=== PATIENT | male | born 1955 | race African-American/Black ===

== ENCOUNTER 2017-02-10 19:35 | Inpatient (IN) | payer MEDICAID ==
[~2017-02-10] VITALS: Ht 177.8 cm; Wt 75.1 kg
[~2017-02-10 19:35] MED LIST: AMLO5TAB2 PO; ASPI-110 PO; GABA800T PO; LANTUS2P SQ; LOSA25TA PO; LOVA40TA PO; OMEP20CA2; ONETKIT; ONETTES4; ROBA500T PO; TAMS5CAP PO; voltaren gel TOP
[2017-02-10 19:37] VITALS: BP 139/86; PULSE 117; RESP 20; TEMP 98.6; O2SAT 96
--- NOTE | 2017-02-10 19:55 | PD ---
Physical Exam Date Seen by Provider: Feb 10, 2017 Time Seen by Provider: 19:53 Narrative 61 yo male here for evaluation of elevated BS. Has had this for a few days. Cannot keep BS down with his meds. Has also multiple other complains including dysuria, feet pain from neuropathy and chest pain. Per patient he feels "bad". Nothing seems to make it better. Has numbness on neck. Chest pain with SOB. pain is 8/10 especially in the feet. His BS has been in the 300s and came down from there to 200s. Vital signs stable in triage. Waiting bed placement. Data Data Last Documented VS Vital Signs Date Time Temp Pulse Resp B/P Pulse Ox O2 Delivery O2 Flow Rate FiO2 02/10/17 19:37 98.6 117 20 139/86 96 Room Air [facility] Medical Record Reviewed: Yes Supervised Visit with TATIANA: Mateo Bueno Feb 10, 2017 19:55
[2017-02-10] MEDS ORDERED: SODIUM CHLOR 0.9% 1000 ML INJ 1,000 ML IV SCH (21:40)
[2017-02-10] MEDS ORDERED: HYDROmorphone HCL PF 2 MG/ML VIAL IVS ONE (21:45)
[2017-02-10] MEDS ORDERED: ONDANSETRON HCL 4 MG/2 ML VIAL IVP ONE (21:45)
--- NOTE | 2017-02-10 21:47 | PD ---
HPI Chief Complaint: Diabetic Time Seen by Provider: 21:39 Travel History International Travel<30 days: No Contact w/Intl Traveler<30days: No Traveled to known affect area: No History of Present Illness HPI HERE C/O ELEV BLOOD SUGAR, ALONG WITH BODY ACHES, N/V/D/ ONGOING FOR SEVERAL DAYS, BODY ACHES ARE SHARP/ACHY MUSCLE ACHES......CURRENTLY DENIES RUNNY NOSE/ COUGH/FEVER...PT DENIES ANY ALLEVIATING OR AGGRAVATING FACTORS PFSH Past Medical History Arthritis: Yes Blood Disorders: No Heart Rhythm Problems: No Cancer: No Cardiovascular Problems: No High Cholesterol: Yes Chest Pain: No Congestive Heart Failure: No Diabetes: Yes Diminished Hearing: No Endocrine: Yes Gastrointestinal Disorders: Yes (HIATAL HERNIA, GERD) GERD: Yes Genitourinary: No Hepatitis: Yes (HEP C) Hiatal Hernia: Yes Hypertension: Yes Immune Disorder: No Musculoskeletal: Yes (ARTHRITIS IN NECK) Neurologic: Yes (NEUROPATHY) Psychiatric: No Reproductive: No Respiratory: Yes (SMOKES 1/2 PPD CIGARETTES) Myocardial Infarction: No Thyroid Disease: No Ulcer: No Past Surgical History Abdominal Surgery: No AICD: No Appendectomy: No Arteriovenous Shunt: No Cardiac Surgery: No Cholecystectomy: No Ear Surgery: No Endocrine Surgery: No Eye Surgery: No Genitourinary Surgery: Yes Gynecologic Surgery: No Insulin Pump: No Joint Replacement: No Oral Surgery: No Pacemaker: No Thoracic Surgery: Yes (BIOPSY OF CHEST MASS 2013, mass removed from chest) Other Surgery: Yes Social History Alcohol Use: Yes (BEER DAILY) Tobacco Use: Yes (CIGARS ONLY) Substance Use: Yes (HX ON METHADONE AND COCAINE OCCASIONALLY) Allergies-Medications (Allergen,Severity, Reaction): Coded Allergies: No Known Allergies (Verified , 01/26/17) Reported Meds & Prescriptions Reported Meds & Active Scripts Active Robaxin (Methocarbamol) 500 Mg Tab 500 Mg PO TID Lantus Inj (Insulin Glargine) 1,000 Unit/10 Ml Vial 60 Units SQ BID 30 Days Lovastatin 40 Mg Tab 80 Mg PO DAILY Gabapentin 800 Mg Tab 800 Mg PO QID Losartan (Losartan Potassium) 25 Mg Tab 25 Mg PO DAILY Amlodipine (Amlodipine Besylate) 5 Mg Tab 5 Mg PO DAILY Flomax (Tamsulosin HCl) 0.4 Mg Cap 0.4 Mg PO HS Onetouch Ultra Test Strips (Blood Glucose Test Strips) 1 Maricruz Maricruz 1 Strip .ROUTE TID Onetouch Ultra Mini W/Device (Device) 1 Kit Kit 1 Kit .ROUTE DIRECTED [voltaren gel] 1 Applic TOP TID PRN Reported Omeprazole 20 Mg Cap Aspirin 81 (Aspirin) 81 Mg Tabdr 81 Mg PO DAILY Review of Systems Except as stated in HPI: all other systems reviewed are Neg Gastrointestinal: Positive: Nausea, Vomiting, Diarrhea, Abdominal Pain Musculoskeletal: Positive: Myalgias Physical Exam Narrative GENERAL: SKIN: Warm and dry. HEAD: Atraumatic. Normocephalic. EYES: Pupils equal and round. No scleral icterus. No injection or drainage. ENT: No nasal bleeding or discharge. Mucous membranes pink and moist. NECK: Trachea midline. No JVD. CARDIOVASCULAR: Regular rate and rhythm. RESPIRATORY: No accessory muscle use. Clear to auscultation. Breath sounds equal bilaterally. GASTROINTESTINAL: Abdomen soft, non-tender, nondistended. Hepatic and splenic margins not palpable. MUSCULOSKELETAL: Extremities without clubbing, cyanosis, or edema. No obvious deformities. NEUROLOGICAL: Awake and alert. No obvious cranial nerve deficits. Motor grossly within normal limits. Five out of 5 muscle strength in the arms and legs. Normal speech. PSYCHIATRIC: Appropriate mood and affect; insight and judgment normal. Data Data Last Documented VS Vital Signs Date Time Temp Pulse Resp B/P Pulse Ox O2 Delivery O2 Flow Rate FiO2 02/10/17 19:37 98.6 117 20 139/86 96 Room Air Orders Electrocardiogram (02/10/17 ) Complete Blood Count With Diff (02/10/17 21:40) Comprehensive Metabolic Panel (02/10/17 21:40) Lipase (02/10/17 21:40) Urinalysis - C+S If Indicated (02/10/17 21:40) Ct Abd/Pel W/O Iv Contrast (02/10/17 21:40) Iv Access Insert/Monitor (02/10/17 21:40) Ecg Monitoring (02/10/17 21:40) Oximetry (02/10/17 21:40) NPO (02/10/17 21:40) Hydromorphone Pf Inj (Dilaudid Pf Inj) (02/10/17 21:45) Ondansetron Inj (Zofran Inj) (02/10/17 21:45) Sodium Chlor 0.9% 1000 Ml Inj (Ns 1000 M (02/10/17 21:40) Influenzae A/B Antigen (02/10/17 21:40) Electrocardiogram (02/10/17 21:41) Ckmb (Isoenzyme) Profile (02/10/17 21:41) Troponin I (02/10/17 21:41) Insulin Human Regular Inj (Novolin R Inj (02/11/17 00:15) Insulin Human Regular Inj (Novolin R Inj (02/11/17 00:15) Admit To Inpatient (02/11/17 ) Vital Signs (Adult) Q4H (02/11/17 00:24) Activity Oob With Assistance (02/11/17 00:24) Housekeeper Caregiver / Telemetry .CONTINUOUS (02/11/17 00:24) Diet Npo (02/11/17 Breakfast) Sodium Chloride 0.9% Flush (Ns Flush) (02/11/17 00:30) Sodium Chloride 0.9% Flush (Ns Flush) (02/11/17 09:00) Basic Metabolic Panel (Bmp) (02/12/17 06:00) Complete Blood Count With Diff (02/12/17 06:00) Case Management Consult (02/11/17 00:24) Naloxone Inj (Narcan Inj) (02/11/17 00:30) Inpatient Certification (02/11/17 ) Dext 5%-Nacl 0.9% 1000 Ml Inj (D5w-Ns 10 (02/11/17 00:30) Bedside Glucose JOSIAS.AC&HS (02/11/17 00:24) Blood Glucose Goal (Criteria) (02/11/17 00:24) Hypoglycemia 70 Mg/Dl Or < (02/11/17 00:24) Notify Dr: Other (02/11/17 00:24) Dextrose 50% In [place] (Vial) Inj (D50w (Vi (02/11/17 00:30) Glucagon Inj (Glucagon Inj) (02/11/17 00:30) Consult Gastroenterology (02/11/17 ) Hydromorphone Pf Inj (Dilaudid Pf Inj) (02/11/17 00:30) Admit Order (Ed Use Only) (02/11/17 00:24) Labs Laboratory Tests Test 02/10/17 21:50 White Blood Count 6.2 TH/MM3 Red Blood Count 4.92 MIL/MM3 Hemoglobin 13.4 GM/DL Hematocrit 40.4 % Mean Corpuscular Volume 82.0 FL Mean Corpuscular Hemoglobin 27.2 PG Mean Corpuscular Hemoglobin 33.2 % Concent Red Cell Distribution Width 13.6 % Platelet Count 301 TH/MM3 Mean Platelet Volume 7.9 FL Neutrophils (%) (Auto) 60.4 % Lymphocytes (%) (Auto) 27.1 % Monocytes (%) (Auto) 9.6 % Eosinophils (%) (Auto) 1.9 % Basophils (%) (Auto) 1.0 % Neutrophils # (Auto) 3.7 TH/MM3 Lymphocytes # (Auto) 1.7 TH/MM3 Monocytes # (Auto) 0.6 TH/MM3 Eosinophils # (Auto) 0.1 TH/MM3 Basophils # (Auto) 0.1 TH/MM3 CBC Comment DIFF FINAL Differential Comment Urine Color LIGHT-YELLOW Urine Turbidity CLEAR Urine pH 5.5 Urine Specific [place] 1.023 Urine Protein NEG mg/dL Urine Glucose (UA) 1000 mg/dL Urine Ketones NEG mg/dL Urine Occult Blood NEG Urine Nitrite NEG Urine Bilirubin NEG Urine Urobilinogen LESS THAN 2.0 MG/DL Urine Leukocyte Esterase NEG Urine WBC LESS THAN 1 /hpf Microscopic Urinalysis Comment CULT NOT INDICATED Sodium Level 128 MEQ/L Potassium Level 4.8 MEQ/L Chloride Level 94 MEQ/L Carbon Dioxide Level 24.8 MEQ/L Anion Gap 9 MEQ/L Blood Urea Nitrogen 9 MG/DL Creatinine 1.31 MG/DL Estimat Glomerular Filtration 68 ML/MIN Rate Random Glucose 451 MG/DL Calcium Level 9.0 MG/DL Total Bilirubin 0.4 MG/DL Aspartate Amino Transf 51 U/L (AST/SGOT) Alanine Aminotransferase 39 U/L (ALT/SGPT) Alkaline Phosphatase 217 U/L Total Protein 7.9 GM/DL Albumin 3.2 GM/DL Lipase 85 U/L [facility] Medical Decision Making Medical Screen Exam Complete: Yes Emergency Medical Condition: Yes Medical Record Reviewed: Yes Differential Diagnosis VIRAL V BACTERIAL ENTERITIS V COLITIS V PANCREATITIS VS VIRAL SYNDROME V ATYPICAL MO Narrative Course PATIENT'S PAIN IS CONTROLLED AND NOT VOMITING ANYMORE, WILL ADMIT TO [facility] FOR CHOLEDOCHOLITHIASIS WHICH WAS EXPLAINED TO PATIENT Physician Communication Physician Communication D/W DR BRASWELL HOSPITALIST AND WITH GI DR SANABRIA Diagnosis Primary Impression: CHOLEDOCHOLITHIASIS Additional Impression: HYPERGLYCEMIA Admitting Information Admitting Physician Requests: Admit Condition: Stable Trent Ambrocio MD Feb 10, 2017 21:47
[2017-02-10 22:13] LABS: AUTOMATED NEUTROPHIL # 3.7 TH/MM3 (1.8-7.7); BASOPHIL # 0.1 TH/MM3 (0-0.2); EOSINOPHIL # 0.1 TH/MM3 (0-0.4); EOSINOPHIL % 1.9 % (0.0-4.0); HEMATOCRIT 40.4 % (39.0-51.0); HEMO FLAGS DIFF FINAL; LYMPH % 27.1 % (9.0-44.0); LYMPHOCYTE # 1.7 TH/MM3 (1.0-4.8); MEAN CORPUSCULAR HEMOGLOBIN 27.2 PG (27.0-34.0); MEAN CORPUSCULAR HGB CONC 33.2 % (32.0-36.0); MONO % 9.6 % (0.0-8.0); NEUT % 60.4 % (16.0-70.0); PLATELET COUNT 301 TH/MM3 (150-450); RED BLOOD COUNT 4.92 MIL/MM3 (4.50-5.90); RED CELL DISTRIBUTION WIDTH 13.6 % (11.6-17.2); WHITE BLOOD COUNT 6.2 TH/MM3 (4.0-11.0)
[2017-02-10 22:24] LABS: BLOOD, URINE NEG (NEG); GLUCOSE,URINE 1000 mg/dL (NEG); KETONE, URINE NEG (NEG); NITRITE,URINE NEG (NEG); PH, URINE 5.5 (5.0-8.5); URINE COLOR LIGHT-YELLOW (YELLW/STRAW)
[2017-02-10 22:25] LABS: COMMENT (UR) CULT NOT INDICATED; CULTURE IF INDICATED CULT NOT INDICATED
[2017-02-10 22:29] LABS: ANION GAP 9 MEQ/L (5-15)
--- NOTE | 2017-02-10 22:29 | RADRPT ---
EXAM DATE/TIME: 02/10/2017 22:07 [place] COMPARISON: No previous studies available for comparison. INDICATIONS : Abdominal pain, nausea and vomiting. ORAL CONTRAST: No oral contrast ingested. RADIATION DOSE: 5.92 CTDIvol (mGy) MEDICAL HISTORY : Hypertension. Gastroesophageal reflux disease. Diabetes. SURGICAL HISTORY : None. ENCOUNTER: Initial ACUITY: 1 day PAIN SCALE: 4/10 LOCATION: All quadrants. TECHNIQUE: Volumetric scanning of the abdomen and pelvis was performed. Using automated exposure control and ad justment of the mA and/or kV according to patient size, radiation dose was kept as low as reasonably achievable to obtain optimal diagnostic quality images. DICOM format image data is available electro nically for review and comparison. FINDINGS: LOWER LUNGS: The visualized lower lungs are clear. LIVER: Homogeneous density without lesion. There is no dilation of the biliary tree. There are calcified ga llstones. The gallbladder is mildly distended. There is a 7 mm calcification seen in the distal commo n bile duct. The common bile duct is dilated measuring up to 1.3 cm. SPLEEN: Normal size without lesion. PANCREAS: Within normal limits. KIDNEYS: Normal in size and shape. There is no mass, stone, or hydronephrosis. ADRENAL GLANDS: Within normal limits. VASCULAR: There is no aortic aneurysm. BOWEL/MESENTERY: The stomach, small bowel, and colon demonstrate no acute abnormality. There is no free intraperitone al air or fluid. ABDOMINAL WALL: Within normal limits. RETROPERITONEUM: There is no lymphadenopathy. BLADDER: No wall thickening or mass. REPRODUCTIVE: Within normal limits. INGUINAL: There is no lymphadenopathy or hernia. MUSCULOSKELETAL: Within normal limits for patient age. CONCLUSION: 7 mm stone at the distal common bile duct. There is dilatation of the common bile duct. Calcified gal lstones are seen. Danny Roman MD on February 10, 2017 at 22:24 Board Certified Radiologist. This report was verified electronically.
[2017-02-10 22:31] LABS: ALKALINE PHOSPHATASE 217 U/L (45-117); ALT (GPT) 39 U/L (12-78); AST (GOT) 51 U/L (15-37); BICARBONATE 24.8 MEQ/L (21.0-32.0); BLOOD UREA NITROGEN 9 MG/DL (7-18); CHLORIDE 94 MEQ/L (98-107); GLOMERULAR FILTRATION RATE 68 ML/MIN (>89); POTASSIUM 4.8 MEQ/L (3.5-5.1); SODIUM (NA) 128 MEQ/L (136-145); TOTAL BILIRUBIN ADULT 0.4 MG/DL (0.2-1.0)
[2017-02-11] VITALS (8 sets, daily range): BP systolic 116–154; BP diastolic 58–85; PULSE 63–86; RESP 16–18; TEMP 96.3–97.6; O2SAT 95–99
[2017-02-11] MEDS ORDERED: INSULIN HUMAN REGULAR 1,000 UNITS/10 ML VIAL IV PUSH ONE (00:15)
[2017-02-11] MEDS ORDERED: INSULIN HUMAN REGULAR 1,000 UNITS/10 ML VIAL SQ ONE (00:15)
[2017-02-11] MEDS ORDERED: NALOXONE HCL 0.4 MG/ML AMP IV PRN (00:30)
[2017-02-11] MEDS ORDERED: SODIUM CHLORIDE 0.9% FLUSH 10 ML FLUSH IV FLUSH PRN (00:30)
[2017-02-11] MEDS ORDERED: DEXTROSE 50% IN WATER 50 ML VIAL(D50) IV PRN (00:30)
[2017-02-11] MEDS ORDERED: GLUCAGON 1 MG/ML VIAL OTHER PRN (00:30)
[2017-02-11] MEDS: DEXT 5%-NACL 0.9% 1000 ML INJ 1,000 ML IV SCH ×2 (00:48→01:55)
[2017-02-11 01:10] LABS: CREATINE KINASE 158 U/L (39-308)
--- NOTE | 2017-02-11 01:59 | HHI.HP ---
[facility] Service [facility] Primary Care Physician Daniela Hilton MD Admission Diagnosis CHOLEDOCHOLITHIASIS, HYPERGLYCEMIA Diagnoses: Travel History International Travel<30 Days: No Contact w/Intl Traveler <30 Da: No Traveled to Known Affected Are: No History of Present Illness i dont feel well has abdominal pain for past 2 months points to epigastric area report of pain in feet rigth ear and neck and numbness and pain nauseous all the time no vomtiing diarrhea once a day or so, reports of cramping, had hard stool that turns to diarrhea no fever no syncope no falls but was dizzy all the time had burning and pain on urination Review of Systems Except as stated in HPI: all other systems reviewed are Neg Past Family Social History Past Medical History htn dm hepatitis C - was not treated Past Surgical History 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 in 01/2014 surgery on right wrist surgery on left foot as a child Allergies: Coded Allergies: No Known Allergies (Verified , 01/26/17) Family History father had dm brother, sister- dm Social History smokes cigars drink a few beers 4 a day used to use cocaine and heroine- have not used heroin for years, cocaine episodic use till now Physical Exam Vital Signs Vital Signs Date Time Temp Pulse Resp B/P Pulse Ox O2 Delivery O2 Flow Rate FiO2 02/11/17 01:40 96.9 84 18 154/85 96 02/11/17 00:55 86 16 116/58 97 02/10/17 19:37 98.6 117 20 139/86 96 Room Air Physical Exam GENERAL: This is a well-nourished, well-developed patient, in no apparent distress. SKIN: No rashes, ecchymoses or lesions. Cool and dry. HEAD: Atraumatic. Normocephalic. No temporal or scalp tenderness. EYES: No scleral icterus. No injection or drainage. ENT: Nose without bleeding, purulent drainage or septal hematoma. Airway patent. NECK: Trachea midline. No JVD CARDIOVASCULAR: Regular rate and rhythm without murmurs, gallops, or rubs. RESPIRATORY: Clear to auscultation. Breath sounds equal bilaterally. No wheezes , rales, or rhonchi. GASTROINTESTINAL: Abdomen soft, non-tender, nondistended. No guarding. MUSCULOSKELETAL: Extremities without clubbing, cyanosis, or edema. No calf tenderness. NEUROLOGICAL: Awake and alert. Normal speech.Pupils equal round and reactive. Extraocular motions intact. Laboratory Laboratory Tests Test 02/10/17 21:50 White Blood Count 6.2 Red Blood Count 4.92 Hemoglobin 13.4 Hematocrit 40.4 Mean Corpuscular Volume 82.0 Mean Corpuscular Hemoglobin 27.2 Mean Corpuscular Hemoglobin 33.2 Concent Red Cell Distribution Width 13.6 Platelet Count 301 Mean Platelet Volume 7.9 Neutrophils (%) (Auto) 60.4 Lymphocytes (%) (Auto) 27.1 Monocytes (%) (Auto) 9.6 Eosinophils (%) (Auto) 1.9 Basophils (%) (Auto) 1.0 Neutrophils # (Auto) 3.7 Lymphocytes # (Auto) 1.7 Monocytes # (Auto) 0.6 Eosinophils # (Auto) 0.1 Basophils # (Auto) 0.1 CBC Comment DIFF FINAL Differential Comment Urine Color LIGHT-YELLOW Urine Turbidity CLEAR Urine pH 5.5 Urine Specific [place] 1.023 Urine Protein NEG Urine Glucose (UA) 1000 Urine Ketones NEG Urine Occult Blood NEG Urine Nitrite NEG Urine Bilirubin NEG Urine Urobilinogen LESS THAN 2.0 Urine Leukocyte Esterase NEG Urine WBC LESS THAN 1 Microscopic Urinalysis Comment CULT NOT INDICATED Sodium Level 128 Potassium Level 4.8 Chloride Level 94 Carbon Dioxide Level 24.8 Anion Gap 9 Blood Urea Nitrogen 9 Creatinine 1.31 Estimat Glomerular Filtration 68 Rate Random Glucose 451 Calcium Level 9.0 Total Bilirubin 0.4 Aspartate Amino Transf 51 (AST/SGOT) Alanine Aminotransferase 39 (ALT/SGPT) Alkaline Phosphatase 217 Total Protein 7.9 Albumin 3.2 Lipase 85 Total Creatine Kinase 158 Creatine Kinase MB 1.0 Troponin I LESS THAN 0.02 Date/Time Procedure Status Source Growth 02/10/17 21:50 Influenza Types A,B Antigen (ELAN) - Final Complete Nasal Washing NEGATIVE FOR FLU A AND B ANTIGEN.... Result Diagram: 02/10/17214902/10/172149 Imaging Last 48 hours Impressions Abdomen/Pelvis CT 02/10/172139 Signed Impressions: Service Date/Time: Friday, February 10, 2017 22:07 - CONCLUSION: 7 mm stone at the distal common bile duct. There is dilatation of the common bile duct. Calcified gallstones are seen. Danny Roman MD Assessment and Plan Assessment and Plan Impression: choledocholelithiasis abdominal pain due to above Plan: npo iv fluids with d5 montior fingersticks gi consult for ercp resume home meds dvt prophylaxis with scd gi prophylaxis with pantoprazole Discussed Condition With patient, ER provider, nursing staff Physician Certification 2 Midnight Certification Type: Admission for Inpatient Services Order for Inpatient Services The services are ordered in accordance with Medicare regulations or non- Medicare payer requirements, as applicable. In the case of services not specified as inpatient-only, they are appropriately provided as inpatient services in accordance with the 2-midnight benchmark. Estimated LOS (days): 2 days is the estimated time the patient will need to remain in the hospital, assuming treatment plan goals are met and no additional complications. Post-Hospital Plan: Home Girish Eaton MD Feb 11, 2017 01:59
[2017-02-11] MEDS: HYDROmorphone HCL PF 1 MG/ML VIAL IV PUSH PRN ×5 (02:55→22:12)
[2017-02-11] MEDS: SODIUM CHLORIDE 0.9% FLUSH 10 ML FLUSH IV FLUSH SCH ×2 (09:00→21:00)
[2017-02-11] MEDS: amLODIPine BESYLATE 5 MG TAB PO SCH (09:08)
[2017-02-11] MEDS: GABAPENTIN 400 MG CAP PO SCH ×4 (09:08→21:04)
[2017-02-11] MEDS: PRAVASTATIN SOD 40 MG TAB PO SCH (09:08)
[2017-02-11] MEDS: PANTOPRAZOLE SOD 40 MG DELAYED RELEASE TAB PO SCH (09:08)
--- NOTE | 2017-02-11 09:37 | PD.CONS ---
HPI History of Present Illness This is a 61 year old male who presented to the emergency room for evaluation of abdominal pain with associated nausea. He reports that he's been having symptoms intermittently for the past 6 months. He describes this pain as an intermittent cramping pain in his epigastric area that radiates to his back and lower abdomen. He does have associated nausea although he denies any vomiting. He has had decreased appetite and has lost about 20 pounds over the past 6 months. He occasionally has heartburn, but denies having this on a regular basis. He does not feel that his abdominal pain is related to food intake. He states that sometimes he will not move that his bowels for 2 days and this seems to set off his abdominal pain. When this happens he will usually have a formed bowel movement and then have several loose stools afterwards. He denies any melena or hematochezia. He denies any fevers, chills, or jaundice. He occasionally will take milk of magnesia for his symptoms, although he states this does not really help with his symptoms. He denies any history of known gallbladder issues. He was diagnosed with hepatitis C about 10 years ago and is treatment [place]. He currently drinks 4 beers per day and states that he has past history of heroin and cocaine use, currently on methadone. PFSH Past Medical History Hypertension Diabetes Hepatitis C, Treatment naive Hx chest wall infection, osteomyelitis, s/p I&D Past Surgical History Chest wall infection with osteomyelitis- s/p surgery Right wrist surgery Left foot surgery Coded Allergies: No Known Allergies (Verified , 01/26/17) Medications Allergies Coded Allergies Type Severity Reaction Last Updated Verified No Known Allergies 01/26/17 Yes Active Scripts Medications Dose Route/Sig Days Date Category Robaxin (Methocarbamol) 500 Mg Tab 500 Mg PO TID 02/10/17 Rx Lantus Inj (Insulin Glargine) 1,000 Unit/10 Ml Vial 60 Units SQ BID 30 01/26/17 Rx Omeprazole 20 Mg Cap 01/26/17 Reported Lovastatin 40 Mg Tab 80 Mg PO DAILY 12/23/16 Rx Gabapentin 800 Mg Tab 800 Mg PO QID 12/23/16 Rx Losartan (Losartan Potassium) 25 Mg Tab 25 Mg PO DAILY 12/23/16 Rx Amlodipine (Amlodipine Besylate) 5 Mg Tab 5 Mg PO DAILY 12/23/16 Rx Flomax (Tamsulosin HCl) 0.4 Mg Cap 0.4 Mg PO HS 12/23/16 Rx Onetouch Ultra Test Strips (Blood Glucose Test Strips) 1 Maricruz Maricruz 1 Strip .ROUTE TID 11/18/16 Rx Onetouch Ultra Mini W/Device (Device) 1 Kit Kit 1 Kit .ROUTE DIRECTED 11/18/16 Rx Aspirin 81 (Aspirin) 81 Mg Tabdr 81 Mg PO DAILY 09/17/16 Reported [voltaren gel] 1 Applic TOP TID PRN 05/15/16 Rx Family History Father, brother, and sister all with diabetes Social History Smokes 5 miniature cigars per day Drinks 4 beers per day History of cocaine and heroin use, currently on methadone treatment Review of Systems Constitutional: COMPLAINS OF: Fatigue, Weight loss, Change in appetite, DENIES : Fever, Chills Respiratory: DENIES: Cough Cardiovascular: DENIES: Chest pain Gastrointestinal: COMPLAINS OF: Abdominal pain, Constipation, Diarrhea, Nausea , Anorexia, DENIES: Black stools, Bloody stools, Vomiting, Heartburn, Hematemesis Musculoskeletal: COMPLAINS OF: Back pain Integumentary: COMPLAINS OF: Abnormal pigmentation (to upper chest and neck), DENIES: Jaundice Neurologic: DENIES: Headache Psychiatric: DENIES: Confusion GI Exam Vitals I&O Vital Signs Date Time Temp Pulse Resp B/P Pulse Ox O2 Delivery O2 Flow Rate FiO2 02/11/17 08:51 97.0 63 16 128/73 99 02/11/17 05:00 96.5 70 16 127/72 97 02/11/17 03:25 18 02/11/17 01:40 96.9 84 18 154/85 96 02/11/17 00:55 86 16 116/58 97 02/10/17 19:37 98.6 117 20 139/86 96 Room Air Imaging Last Impressions Abdomen/Pelvis CT 02/10/17 2140 Signed Impressions: Service Date/Time: Friday, February 10, 2017 22:07 - CONCLUSION: 7 mm stone at the distal common bile duct. There is dilatation of the common bile duct. Calcified gallstones are seen. Danny Roman MD Laboratory Test 02/10/17 21:50 White Blood Count 6.2 TH/MM3 Red Blood Count 4.92 MIL/MM3 Hemoglobin 13.4 GM/DL Hematocrit 40.4 % Mean Corpuscular Volume 82.0 FL Mean Corpuscular Hemoglobin 27.2 PG Mean Corpuscular Hemoglobin 33.2 % Concent Red Cell Distribution Width 13.6 % Platelet Count 301 TH/MM3 Mean Platelet Volume 7.9 FL Neutrophils (%) (Auto) 60.4 % Lymphocytes (%) (Auto) 27.1 % Monocytes (%) (Auto) 9.6 % Eosinophils (%) (Auto) 1.9 % Basophils (%) (Auto) 1.0 % Neutrophils # (Auto) 3.7 TH/MM3 Lymphocytes # (Auto) 1.7 TH/MM3 Monocytes # (Auto) 0.6 TH/MM3 Eosinophils # (Auto) 0.1 TH/MM3 Basophils # (Auto) 0.1 TH/MM3 CBC Comment DIFF FINAL Differential Comment Urine Color LIGHT-YELLOW Urine Turbidity CLEAR Urine pH 5.5 Urine Specific [place] 1.023 Urine Protein NEG mg/dL Urine Glucose (UA) 1000 mg/dL Urine Ketones NEG mg/dL Urine Occult Blood NEG Urine Nitrite NEG Urine Bilirubin NEG Urine Urobilinogen LESS THAN 2.0 MG/DL Urine Leukocyte Esterase NEG Urine WBC LESS THAN 1 /hpf Microscopic Urinalysis Comment CULT NOT INDICATED Sodium Level 128 MEQ/L Potassium Level 4.8 MEQ/L Chloride Level 94 MEQ/L Carbon Dioxide Level 24.8 MEQ/L Anion Gap 9 MEQ/L Blood Urea Nitrogen 9 MG/DL Creatinine 1.31 MG/DL Estimat Glomerular Filtration 68 ML/MIN Rate Random Glucose 451 MG/DL Calcium Level 9.0 MG/DL Total Bilirubin 0.4 MG/DL Aspartate Amino Transf 51 U/L (AST/SGOT) Alanine Aminotransferase 39 U/L (ALT/SGPT) Alkaline Phosphatase 217 U/L Total Protein 7.9 GM/DL Albumin 3.2 GM/DL Lipase 85 U/L Total Creatine Kinase 158 U/L Creatine Kinase MB 1.0 NG/ML Troponin I LESS THAN 0.02 NG/ML Date/Time Procedure Status Source Growth 02/10/17 21:50 Influenza Types A,B Antigen (ELAN) - Final Complete Nasal Washing NEGATIVE FOR FLU A AND B ANTIGEN.... Physical Examination HEENT: Normocephalic; atraumatic; no jaundice. CHEST: CTA CARDIAC: RRR ABDOMEN: Soft, nondistended, mild epigastric tenderness; no hepatosplenomegaly ; bowel sounds are present in all four quadrants. EXTREMITIES: No clubbing, cyanosis, or edema. SKIN: Normal; no rash; no jaundice. DUAL RATE DEALER: No focal deficits; alert and oriented times three. Assessment and Plan Plan ASSESSMENT: - Choledocholithiasis. Abdomen/Pelvis CT (02/10/17)----> 7 mm stone at the distal common bile duct. There is dilatation of the common bile duct. Calcified gallstones are seen. He has been having intermittent nausea, abdominal pain, anorexia, weight loss x 6 months. He is in no distress and is afebrile. Yesterday's LFTs with T. Bilirubin total bilirubin 0.4, AST 51 , ALT 39, alkaline phosphatase 217. We will repeat LFTs today. WBC 6.2. Will plan for ERCP with possible sphincterotomy, possible stent placement tomorrow. - Abdominal pain, nausea secondary to above. PPI. Rpt. LFT. ERCP tomorrow - Anorexia, Wt. Loss 30 lbs in [address] as above. - Cholelithiasis. Will consult for evaluation for possible cholecystectomy after ERCP - CLEMENTE, Creat 1.31. - Hyponatremia, diabetes with elevated glucose per primary PLAN: - Plan for ERCP with possible sphincterotomy, possible stent placement tomorrow - Obtain consents - JUDY - NPO after MN - PPI - IVF - CMP today - CBC, CMP and a.m. - Supportive care - Further recommendations to follow based on results of above - Patient seen and examined by Dr. Bray and myself and this note is written on his behalf Delia Couch Feb 11, 2017 09:36
--- NOTE | 2017-02-11 09:54 | HHI.PR ---
Subjective Remarks Follow up abdominal pain. The patient states that his abdominal pain is somewhat better. He reports left-sided chest pain, which has been intermittent for the last year. Occurs at rest. No chest pain today. He has nausea, but no vomiting. Objective Vitals Vital Signs Date Time Temp Pulse Resp B/P Pulse Ox O2 Delivery O2 Flow Rate FiO2 02/11/17 08:51 97.0 63 16 128/73 99 02/11/17 05:00 96.5 70 16 127/72 97 02/11/17 03:25 18 02/11/17 01:40 96.9 84 18 154/85 96 02/11/17 00:55 86 16 116/58 97 02/10/17 19:37 98.6 117 20 139/86 96 Room Air Result Diagram: 02/10/17214902/10/172149 Imaging Last Impressions Abdomen/Pelvis CT 02/10/172139 Signed Impressions: Service Date/Time: Friday, February 10, 2017 22:07 - CONCLUSION: 7 mm stone at the distal common bile duct. There is dilatation of the common bile duct. Calcified gallstones are seen. Danny Roman MD Objective Remarks General: No acute distress. Sitting up in a chair. Heart: Regular rate and rhythm. No murmur. Lungs: Clear to auscultation bilaterally. No wheezes, rales, or rhonchi. Breathing is nonlabored. Abdomen: Soft, nontender, nondistended. Extremities: No lower extremity edema. Psych: Alert and oriented. Procedures None Urinary Catheter: No Vascular Central Line Catheter: No A/P Problem List: (1) Choledocholithiasis ICD Code: K80.50 Status: Acute (2) Abdominal pain ICD Code: R10.9 Status: Acute (3) Diabetes mellitus with neuropathy ICD Code: E11.40 Status: Chronic (4) Methadone dependence ICD Code: F11.20 Status: Chronic (5) Chest pain ICD Code: R07.9 Status: Chronic Assessment and Plan 1. Choledocholithiasis: Appreciate GI recommendations. Planning for ERCP tomorrow. Abdominal pain is improving. 2. Diabetes mellitus with neuropathy: Monitor Accu-Cheks and cover with sliding scale insulin. Will remove D5 from IV fluids when patient is tolerating food by mouth. 3. Chest pain: This is chronic, intermittent. Unlikely to be cardiac. Cardiac enzymes are negative. 4. Chronic methadone dependence: Nursing to verify dose with methadone clinic. 5. GI prophylaxis: PPI. 6. DVT prophylaxis: SCDs. Problem Qualifiers (1) Diabetes mellitus with neuropathy: Michael Willoughby MD Feb 11, 2017 09:54
[2017-02-11] MEDS ORDERED: METH40TA PO (11:34)
[2017-02-11] MEDS: METHADONE HCL 10 MG TAB PO SCH (12:50)
[2017-02-11] MEDS: LOSARTAN 25 MG TAB PO SCH (12:51)
[2017-02-11] MEDS: INSULIN ASPART SUPPLEMENTAL SCALE SQ SCH ×3 (13:29→21:08)
[2017-02-11 13:48] LABS: ALKALINE PHOSPHATASE 185 U/L (45-117); ALT (GPT) 31 U/L (12-78); ANION GAP 6 MEQ/L (5-15); AST (GOT) 23 U/L (15-37); BLOOD UREA NITROGEN 7 MG/DL (7-18); CHLORIDE 102 MEQ/L (98-107); GLOMERULAR FILTRATION RATE 87 ML/MIN (>89); POTASSIUM 3.9 MEQ/L (3.5-5.1); SODIUM (NA) 137 MEQ/L (136-145); TOTAL BILIRUBIN ADULT 0.3 MG/DL (0.2-1.0)
[2017-02-11] MEDS: SODIUM CHLOR 0.9% 1000 ML INJ 1,000 ML IV SCH (14:42)
[2017-02-11] MEDS: TAMSULOSIN HCL 0.4 MG CAP PO SCH (21:04)
--- NOTE | 2017-02-11 23:22 | EKG ---
Date Performed: 02/10/2017 Time Performed: 20:04:05 PTAGE: 61 years EKG: SINUS TACHYCARDIA POSSIBLE LEFT ATRIAL ENLARGEMENT POSSIBLE INFERIOR MYOCARDIAL INFARCTION ABNORMAL ECG PREVIOUS TRACING : 06/14/2016 15.36 Compared to the previous tracing RATE FASTER DOCTOR: Ida Spencer Interpretating Date/Time 02/11/2017 23:21:13
[2017-02-12] VITALS (9 sets, daily range): BP systolic 140–159; BP diastolic 69–91; PULSE 57–85; RESP 16–18; TEMP 96.6–97.5; O2SAT 97–99
[2017-02-12] MEDS: SODIUM CHLOR 0.9% 1000 ML INJ 1,000 ML IV SCH ×2 (02:34→13:38)
[2017-02-12] MEDS: HYDROmorphone HCL PF 1 MG/ML VIAL IV PUSH PRN ×4 (02:35→20:51)
[2017-02-12] MEDS: INSULIN ASPART SUPPLEMENTAL SCALE SQ SCH ×4 (05:17→20:54)
[2017-02-12 08:11] LABS: AUTOMATED NEUTROPHIL # 2.1 TH/MM3 (1.8-7.7); BASOPHIL % 0.2 % (0.0-2.0); EOSINOPHIL # 0.2 TH/MM3 (0-0.4); EOSINOPHIL % 4.6 % (0.0-4.0); HEMATOCRIT 37.4 % (39.0-51.0); HEMO FLAGS DIFF FINAL; LYMPH % 34.1 % (9.0-44.0); LYMPHOCYTE # 1.4 TH/MM3 (1.0-4.8); MEAN CORPUSCULAR HEMOGLOBIN 27.4 PG (27.0-34.0); MEAN CORPUSCULAR HGB CONC 33.4 % (32.0-36.0); MONO % 10.4 % (0.0-8.0); NEUT % 50.7 % (16.0-70.0); PLATELET COUNT 258 TH/MM3 (150-450); RED BLOOD COUNT 4.56 MIL/MM3 (4.50-5.90); RED CELL DISTRIBUTION WIDTH 13.5 % (11.6-17.2); WHITE BLOOD COUNT 4.2 TH/MM3 (4.0-11.0)
[2017-02-12 08:38] LABS: ALT (GPT) 29 U/L (12-78); ANION GAP 7 MEQ/L (5-15); AST (GOT) 30 U/L (15-37); BICARBONATE 28.2 MEQ/L (21.0-32.0); BLOOD UREA NITROGEN 9 MG/DL (7-18); CHLORIDE 102 MEQ/L (98-107); GLOMERULAR FILTRATION RATE 92 ML/MIN (>89); SODIUM (NA) 137 MEQ/L (136-145)
[2017-02-12 08:41] LABS: ALKALINE PHOSPHATASE 179 U/L (45-117); TOTAL BILIRUBIN ADULT 0.4 MG/DL (0.2-1.0)
[2017-02-12] MEDS: SODIUM CHLORIDE 0.9% FLUSH 10 ML FLUSH IV FLUSH SCH ×2 (09:00→20:47)
[2017-02-12] MEDS: amLODIPine BESYLATE 5 MG TAB PO SCH (09:38)
[2017-02-12] MEDS: LOSARTAN 25 MG TAB PO SCH (09:38)
[2017-02-12] MEDS: PRAVASTATIN SOD 40 MG TAB PO SCH (09:39)
[2017-02-12] MEDS: METHADONE HCL 10 MG TAB PO SCH (09:39)
[2017-02-12] MEDS: PANTOPRAZOLE SOD 40 MG DELAYED RELEASE TAB PO SCH (09:39)
[2017-02-12] MEDS: GABAPENTIN 400 MG CAP PO SCH ×4 (09:39→20:49)
--- NOTE | 2017-02-12 10:47 | HHI.PR ---
Subjective Remarks Follow up abdominal pain. Patient states that he feels much better. Abdominal pain is improved. No nausea/vomiting. Objective Vitals Vital Signs Date Time Temp Pulse Resp B/P Pulse Ox O2 Delivery O2 Flow Rate FiO2 02/12/17 08:32 97.1 57 16 142/69 99 02/12/17 04:00 96.6 68 18 159/80 98 02/12/17 00:00 97.1 66 16 140/79 99 02/11/17 20:08 70 02/11/17 20:00 96.7 64 16 125/70 98 02/11/17 16:00 96.3 65 16 124/71 98 02/11/17 12:00 97.6 67 16 131/72 97 I/O 02/11/17 02/11/17 02/11/17 02/12/17 02/12/17 02/12/17 07:00 15:00 23:00 07:00 15:00 23:00 Intake Total 960 ml 480 ml 2346 ml Output Total 450 ml Balance 960 ml 30 ml 2346 ml Intake Oral 960 ml 480 ml IV Total 2346 ml Output Urine Total 450 ml # Voids 1 1 Result Diagram: 02/12/17 0747 02/12/17 0747 Imaging Last Impressions Abdomen/Pelvis CT 02/10/172139 Signed Impressions: Service Date/Time: Friday, February 10, 2017 22:07 - CONCLUSION: 7 mm stone at the distal common bile duct. There is dilatation of the common bile duct. Calcified gallstones are seen. Danny Roman MD Objective Remarks General: No acute distress. Heart: Regular rate and rhythm. No murmur. Lungs: Clear to auscultation bilaterally. No wheezes, rales, or rhonchi. Breathing is nonlabored. Abdomen: Soft, nontender, nondistended. Extremities: No lower extremity edema. Psych: Alert and oriented. Procedures None Urinary Catheter: No Vascular Central Line Catheter: No A/P Problem List: (1) Choledocholithiasis ICD Code: K80.50 Status: Acute (2) Abdominal pain ICD Code: R10.9 Status: Acute (3) Diabetes mellitus with neuropathy ICD Code: E11.40 Status: Chronic (4) Methadone dependence ICD Code: F11.20 Status: Chronic (5) Chest pain ICD Code: R07.9 Status: Chronic Assessment and Plan 1. Choledocholithiasis: Appreciate GI recommendations. ERCP today. Abdominal pain is improved. 2. Diabetes mellitus with neuropathy: Monitor Accu-Cheks and cover with sliding scale insulin. 3. Chest pain: This is chronic, intermittent. Unlikely to be cardiac. Cardiac enzymes are negative. 4. Chronic methadone dependence: Methadone dose confirmed by nursing with methadone clinic. 5. GI prophylaxis: PPI. 6. DVT prophylaxis: SCDs. Problem Qualifiers (1) Diabetes mellitus with neuropathy: Michael Willoughby MD Feb 12, 2017 10:47
[2017-02-12] MEDS ORDERED: ONDANSETRON HCL 4 MG/2 ML VIAL IV PUSH ONE (12:00)
[2017-02-12] MEDS ORDERED: NEOSTIGMINE 3 MG/3 ML SYR IV ONE (12:00)
[2017-02-12 16:05] LABS: HEMOGLOBIN A1a 1.3 %; HEMOGLOBIN A1b 1.9 %; HEMOGLOBIN Ao 74.6 %; HEMOGLOBIN LA1C 2.8 %; HEMOGLOBIN P3 4.7 %
[2017-02-12] MEDS ORDERED: IOHEXOL 350 MG/ML 50 ML BTL (for RAD DIAG) OTHER ONE (17:49)
[2017-02-12] MEDS ORDERED: PROPOFOL 200 MG/20 ML AMP IV ONE (18:04)
--- NOTE | 2017-02-12 18:22 | PD.PROCEDR ---
GI Procedure REFERRING PHYSICIAN Ryan WHITE PERFORMED ERCP with sphincterotomy and balloon extraction INDICATION FOR PROCEDURE Choledocholithiasis PROCEDURE: The procedure, risks and benefits were discussed with Mr. Longo and informed consent was obtained. Anesthesia sedated him with Diprivan. He was placed in the left lateral decubitus position. ERCP: Patient was placed in a prone position. The Pentax videoscope was introduced through the oropharynx and advanced to the second portion of the duodenum where the ampula was identified. FINDINGS: The ampulla appeared to be unremarkable initial cannulation was that of the pancreatic duct with limited injection then I was able to cannulate the common bile duct appeared to be dilated there was a distal filling defect the intrahepatics were unremarkable a sphincterotomy was performed then using initially the 15 mm balloon then the 12 mm balloon I was able to take out the filling defect a small stone a cholangiogram subsequently was unremarkable the patient tolerated procedure well and there were no immediate complications ESTIMATED BLOOD LOSS: None SPECIMENS REMOVED: None COMPLICATIONS: None IMPRESSION: Choledocholithiasis PLAN: Continue present supportive care Monitor labs Travis Roche MD Feb 12, 2017 18:22
[2017-02-12] MEDS ORDERED: fentaNYL CITRATE 250 MCG/5 ML AMP ONE (18:25)
--- NOTE | 2017-02-12 18:32 | RADRPT ---
EXAM DATE/TIME: 02/12/2017 17:51 [facility] COMPARISON: CT ABDOMEN & PELVIS W/O CONTRAST, February 10, 2017, 22:07. INDICATIONS : Patient with abdominal pain, nausea and vomiting. 7 mm stone noted in the distal common bile duct on CT. Sphincterotomy FLUORO TIME: 4.37 minutes IMAGE COUNT: 2 CONTRAST: Instilled by Ordering Physician MEDICAL HISTORY : Hypertension. Gastroesophageal reflux disease. Diabetes mellitus type II. SURGICAL HISTORY : None. ENCOUNTER: Initial ACUITY: 3 days PAIN SCORE: Non-responsive. LOCATION: Abdomen FINDINGS: An ERCP was performed by the ordering physician. 2 anterior coned-down images of the right upper quadrant were obtained using a matrix camera. This de monstrates an endoscope in place with cannulization of the common bile duct. The common bile duct is dilated and measures up to approximately 1 cm. There is no contrast in the distal duct with apparent filling defect. There is contrast noted in the pancreatic duct. CONCLUSION: ERCP as above. Vaibhav Shine MD on February 12, 2017 at 18:27 Board Certified Radiologist. This report was verified electronically.
[2017-02-12] MEDS ORDERED: *LABETALOL HCL 100 MG/20 ML VIAL PERIprocedural Use ONLY ONE (18:36)
[2017-02-12] MEDS ORDERED: DO NOT ADM ANY ANTICOAGULANT DRUGS PRN (19:15)
[2017-02-12] MEDS: TAMSULOSIN HCL 0.4 MG CAP PO SCH (20:49)
[2017-02-13] VITALS (8 sets, daily range): BP systolic 140–173; BP diastolic 65–84; PULSE 56–80; RESP 14–20; TEMP 96.6–98.2; O2SAT 95–100
[2017-02-13] MEDS: SODIUM CHLOR 0.9% 1000 ML INJ 1,000 ML IV SCH ×2 (01:09→13:40)
[2017-02-13] MEDS: HYDROmorphone HCL PF 1 MG/ML VIAL IV PUSH PRN ×4 (01:10→21:40)
[2017-02-13] MEDS: INSULIN ASPART SUPPLEMENTAL SCALE SQ SCH ×4 (05:36→20:19)
[2017-02-13] MEDS ORDERED: HYDROmorphone HCL PF 1 MG/ML VIAL IV PUSH ONE (08:00)
[2017-02-13] MEDS: METHADONE HCL 10 MG TAB PO SCH (08:27)
[2017-02-13] MEDS: PRAVASTATIN SOD 40 MG TAB PO SCH (08:27)
[2017-02-13] MEDS: LOSARTAN 25 MG TAB PO SCH (08:27)
[2017-02-13] MEDS: GABAPENTIN 400 MG CAP PO SCH ×4 (08:27→20:12)
[2017-02-13] MEDS: PANTOPRAZOLE SOD 40 MG DELAYED RELEASE TAB PO SCH (08:27)
[2017-02-13] MEDS: amLODIPine BESYLATE 5 MG TAB PO SCH (08:29)
[2017-02-13] MEDS: SODIUM CHLORIDE 0.9% FLUSH 10 ML FLUSH IV FLUSH SCH ×2 (08:29→20:12)
--- NOTE | 2017-02-13 10:07 | HHI.PR ---
Subjective Remarks Follow-up abdominal pain. Patient had worsening abdominal pain this morning, but is now comfortable after receiving Dilaudid. Denies diarrhea or constipation. Denies nausea or vomiting. Objective Vitals Vital Signs Date Time Temp Pulse Resp B/P Pulse Ox O2 Delivery O2 Flow Rate FiO2 02/13/17 09:21 95 21 02/13/17 04:00 97.4 56 14 140/65 99 02/13/17 00:04 97.9 74 18 154/77 99 02/12/17 20:04 97.5 78 17 157/91 97 02/12/17 20:00 72 02/12/17 19:39 58 02/12/17 18:45 97.8 60 12 162/79 99 Room Air 02/12/17 18:30 65 13 189/86 99 Room Air 02/12/17 18:19 97.7 83 15 164/90 100 Simple Mask 6 02/12/17 16:00 97.5 70 16 140/72 99 02/12/17 12:46 96.9 64 16 147/74 99 I/O 02/12/17 02/12/17 02/12/17 02/13/17 02/13/17 02/13/17 07:00 15:00 23:00 07:00 15:00 23:00 Intake Total 2346 ml 712 ml 800 ml Output Total 0 ml Balance 2346 ml 712 ml 800 ml IV Total 2346 ml 712 ml Other 800 ml Estimated Blood Loss 0 ml # Voids 1 3 Result Diagram: 02/12/17 0747 02/12/17 0747 Imaging Last Impressions GI Procedure 02/12/17 0000 Signed Impressions: Service Date/Time: January 17:51 - CONCLUSION: ERCP as above. Vaibhav Shine MD Abdomen/Pelvis CT 02/10/17 2140 Signed Impressions: Service Date/Time: Friday, February 10, 2017 22:07 - CONCLUSION: 7 mm stone at the distal common bile duct. There is dilatation of the common bile duct. Calcified gallstones are seen. Danny Roman MD Objective Remarks General: No acute distress. Heart: Regular rate and rhythm. No murmur. Lungs: Clear to auscultation bilaterally. No wheezes, rales, or rhonchi. Breathing is nonlabored. Abdomen: Soft, nontender, nondistended. Extremities: No lower extremity edema. Psych: Alert and oriented. Procedures 02/12/17 ERCP Urinary Catheter: No Vascular Central Line Catheter: No A/P Problem List: (1) Choledocholithiasis ICD Code: K80.50 Status: Acute (2) Abdominal pain ICD Code: R10.9 Status: Acute (3) Diabetes mellitus with neuropathy ICD Code: E11.40 Status: Chronic (4) Methadone dependence ICD Code: F11.20 Status: Chronic (5) Chest pain ICD Code: R07.9 Status: Chronic Assessment and Plan 1. Choledocholithiasis: Appreciate GI recommendations. Status post ERCP. Abdominal pain is improved. 2. Diabetes mellitus with neuropathy: Monitor Accu-Cheks and cover with sliding scale insulin. 3. Chest pain: This is chronic, intermittent. Unlikely to be cardiac. Cardiac enzymes are negative. 4. Chronic methadone dependence: Methadone dose confirmed by nursing with methadone clinic. 5. GI prophylaxis: PPI. 6. DVT prophylaxis: SCDs. Discharge Planning Possible discharge home tomorrow if cleared by GI and symptoms are improved. Problem Qualifiers (1) Diabetes mellitus with neuropathy: Michael Willoughby MD Feb 13, 2017 10:07
[2017-02-13] MEDS ORDERED: BISACODYL 10 MG SUPP RECTAL PRN (10:15)
[2017-02-13] MEDS ORDERED: SENNOSIDES 8.6 MG TAB PO PRN (10:15)
[2017-02-13] MEDS ORDERED: MAGNESIUM HYDROXIDE SUSP 30 ML CUP PO PRN (10:15)
[2017-02-13] MEDS ORDERED: LACTULOSE SYRUP 20 GM/30 ML CUP PO PRN (10:15)
[2017-02-13] MEDS ORDERED: PROPOFOL 200 MG/20 ML AMP IV ONE (12:00)
[2017-02-13] MEDS ORDERED: ONDANSETRON HCL 4 MG/2 ML VIAL IV PUSH ONE (12:00)
[2017-02-13] MEDS ORDERED: NEOSTIGMINE 3 MG/3 ML SYR IV ONE (12:00)
[2017-02-13 12:11] LABS: HEMATOCRIT 37.3 % (39.0-51.0); MEAN CELL VOLUME 82.9 FL (80.0-100.0); MEAN CORPUSCULAR HEMOGLOBIN 26.6 PG (27.0-34.0); MEAN CORPUSCULAR HGB CONC 32.1 % (32.0-36.0); PLATELET COUNT 225 TH/MM3 (150-450); RED CELL DISTRIBUTION WIDTH 13.3 % (11.6-17.2); REVIEW FLAG FINAL
[2017-02-13 12:31] LABS: ALT (GPT) 30 U/L (12-78); AST (GOT) 29 U/L (15-37); BICARBONATE 29.7 MEQ/L (21.0-32.0); BLOOD UREA NITROGEN 5 MG/DL (7-18); CHLORIDE 102 MEQ/L (98-107); GLOMERULAR FILTRATION RATE 97 ML/MIN (>89); POTASSIUM 4.2 MEQ/L (3.5-5.1); SODIUM (NA) 138 MEQ/L (136-145)
[2017-02-13 12:32] LABS: ANION GAP 6 MEQ/L (5-15)
[2017-02-13 12:34] LABS: ALKALINE PHOSPHATASE 164 U/L (45-117); TOTAL BILIRUBIN ADULT 0.5 MG/DL (0.2-1.0)
[2017-02-13] MEDS: DOCUSATE SODIUM 50 MG/SENNA 8.6 MG TAB PO SCH ×2 (12:38→20:10)
--- NOTE | 2017-02-13 14:43 | HHI.GIFU ---
Subjective Remarks Resting in bed. States he had abdominal last night, none now. No n/v. No abdominal pain. Only had clears so far. Would like to eat. Objective Vitals I&O Vital Signs Date Time Temp Pulse Resp B/P Pulse Ox O2 Delivery O2 Flow Rate FiO2 02/13/17 12:00 96.8 69 20 151/75 99 02/13/17 09:21 95 21 02/13/17 08:00 97.8 68 20 158/74 99 02/13/17 04:00 97.4 56 14 140/65 99 02/13/17 00:04 97.9 74 18 154/77 99 02/12/17 20:04 97.5 78 17 157/91 97 02/12/17 20:00 72 02/12/17 19:39 58 02/12/17 18:45 97.8 60 12 162/79 99 Room Air 02/12/17 18:30 65 13 189/86 99 Room Air 02/12/17 18:19 97.7 83 15 164/90 100 Simple Mask 02/12/17 16:00 97.5 70 16 140/72 99 I/O 02/12/17 02/12/17 02/12/17 02/13/17 02/13/17 02/13/17 07:00 15:00 23:00 07:00 15:00 23:00 Intake Total 2346 ml 712 ml 800 ml Output Total 0 ml Balance 2346 ml 712 ml 800 ml IV Total 2346 ml 712 ml Other 800 ml Estimated Blood Loss 0 ml # Voids 1 3 Laboratory Laboratory Tests Test 02/13/17 11:25 White Blood Count 5.0 Red Blood Count 4.50 Hemoglobin 12.0 Hematocrit 37.3 Mean Corpuscular Volume 82.9 Mean Corpuscular Hemoglobin 26.6 Mean Corpuscular Hemoglobin 32.1 Concent Red Cell Distribution Width 13.3 Platelet Count 225 Mean Platelet Volume 7.8 Sodium Level 138 Potassium Level 4.2 Chloride Level 102 Carbon Dioxide Level 29.7 Anion Gap 6 Blood Urea Nitrogen 5 Creatinine 0.96 Estimat Glomerular Filtration 97 Rate Random Glucose 254 Calcium Level 8.5 Total Bilirubin 0.5 Aspartate Amino Transf 29 (AST/SGOT) Alanine Aminotransferase 30 (ALT/SGPT) Alkaline Phosphatase 164 Total Protein 6.7 Albumin 2.7 Lipase 89 Date/Time Procedure Status Source Growth 02/10/17 21:50 Influenza Types A,B Antigen (ELAN) - Final Complete Nasal Washing NEGATIVE FOR FLU A AND B ANTIGEN.... Imaging Last Impressions GI Procedure 02/12/17 0000 Signed Impressions: Service Date/Time: January 17:51 - CONCLUSION: ERCP as above. Vaibhav Shine MD Abdomen/Pelvis CT 02/10/17 2140 Signed Impressions: Service Date/Time: Friday, February 10, 2017 22:07 - CONCLUSION: 7 mm stone at the distal common bile duct. There is dilatation of the common bile duct. Calcified gallstones are seen. Danny Roman MD Physical Exam HEENT: Normocephalic; atraumatic; no jaundice. CHEST: CTA CARDIAC: RRR ABDOMEN: Soft, nondistended, nontender; no hepatosplenomegaly; bowel sounds are present in all four quadrants. EXTREMITIES: No clubbing, cyanosis, or edema. SKIN: Normal; no rash; no jaundice. NUTRITION TEACHER: No focal deficits; alert and oriented times three. Assessment and Plan Plan ASSESSMENT: - Choledocholithiasis. Abdomen/Pelvis CT (02/10/17)----> 7 mm stone at the distal common bile duct. There is dilatation of the common bile duct. Calcified gallstones are seen. S/P ERCP with sphincterotomy and balloon extraction (02/13/17)----> Choledocholithiasis. Had some pain post procedure, but states he is no longer having pain. Tolerating clear liquids. Okay for heart healthy diet. LFTs stable as above. - Abdominal pain, nausea secondary to above. Improved. PPI. Rpt. LFT. - Anorexia, Wt. Loss 30 lbs in [address] as above. - Cholelithiasis. Will consult GS for evaluation for possible cholecystectomy - CLEMENTE, Improved - Hyponatremia, diabetes with elevated glucose per primary PLAN: - Heart healthy diet, diabetic - Consult GS to get established for possible lap. cholecystectomy - PPI - Monitor labs - Supportive care - Further recommendations to follow based on results of above - Patient seen and examined by Dr. Bray and myself and this note is written on his behalf Delia Couch Feb 13, 2017 14:43
--- NOTE | 2017-02-13 16:22 | PD.CONS ---
cc: Evan Martino MD HPI Service General Surgery Consult Requested By Delia HOLDER Reason for Consult Choledocholithiasis; evaluation for laparoscopic cholecystectomy Primary Care Physician Daniela Hilton MD History of Present Illness This is a 61 year old male with a past medical history of diabetes mellitus type 2, Hepatitis C, hypertension, and hiatal hernia. He reports he has had abdominal crampy type pain for 2-3 months. 02/23, currently the pain is 4/10, worse with movement, better with sitting still. He has episodes where he is constipated and episodes where he has diarrhea. He does report nausea. He does not have any vomiting. He came to the emergency room for evaluation of malaise and elevated blood sugars. A CT abdomen and pelvis was obtained which showed a 7 mm stone at the distal common bile duct. An ERCP was completed with extraction of the stone. A General Surgery consultation has been requested for evaluation of laparoscopic cholecystectomy during hospitalization. Review of Systems Constitutional: DENIES: Fatigue, Fever, Chills Endocrine: DENIES: Polydipsia, Polyuria, Polyphagia Eyes: DENIES: Eye inflammation Ears, nose, mouth, throat: DENIES: Hearing loss Respiratory: DENIES: Apneas Cardiovascular: DENIES: Chest pain Gastrointestinal: COMPLAINS OF: Abdominal pain, Constipation, Diarrhea, Nausea , DENIES: Vomiting Genitourinary: DENIES: Urinary frequency Musculoskeletal: DENIES: Joint pain Integumentary: DENIES: Abnormal pigmentation Hematologic/lymphatic: DENIES: Bruising Neurologic: DENIES: Headache, Localized weakness Psychiatric: DENIES: Mood changes, Depression, Hallucinations Past Family Social History Past Medical History Diabetes mellitus type 2 Hepatitis C Hypertension Hiatal hernia Past Surgical History Chest wall infection with osteomyelitis Reported Medications Flomax Losartan Gabapentin Robaxin Amlodipine Lovastatin Lantus Aspirin Methadone Allergies: Coded Allergies: No Known Allergies (Verified , 01/26/17) Active Ordered Medications Current Medications Medications (Trade) Dose Ordered Sig/Sharon Route Start Time Stop Time Status Last Admin (NS Flush) 2 ml UNSCH PRN IV FLUSH 02/11/17 00:30 (NS Flush) 2 ml BID IV FLUSH 02/11/17 09:00 02/13/17 08:29 (Narcan Inj) 0.4 mg UNSCH PRN IV 02/11/17 00:30 (D50w (Vial) Inj) 50 ml UNSCH PRN IV 02/11/17 00:30 (Glucagon Inj) 1 mg UNSCH PRN OTHER 02/11/17 00:30 (Dilaudid Pf Inj) 0.2 mg Q4H PRN IV PUSH 02/11/17 00:30 02/13/17 09:35 (Norvasc) 5 mg DAILY PO 02/11/17 09:00 02/13/17 08:29 (Neurontin) 800 mg QID PO 02/11/17 09:00 02/13/17 12:38 (Cozaar) 25 mg DAILY PO 02/11/17 09:00 02/13/17 08:27 (Pravachol) 80 mg DAILY PO 02/11/17 09:00 02/13/17 08:27 (Flomax) 0.4 mg HS PO 02/11/17 21:00 02/12/17 20:49 (Protonix) 40 mg DAILY PO 02/11/17 09:00 02/13/17 08:27 Methadone HCl 40 mg 40 mg DAILY PO 02/11/17 13:00 02/13/17 08:27 (NS 1000 ml Inj) 1,000 ml @ 84 mls/hr [id number] IV 02/11/17 14:00 02/13/17 01:09 Miscellaneous Information ALL NURSING DEPARTME... UNSCH PRN .XX 02/12/17 19:15 02/13/17 19:14 (Milk Of Magnesia Liq) 30 ml Q12H PRN PO 02/13/17 10:15 (Senokot) 17.2 mg Q12H PRN PO 02/13/17 10:15 (Dulcolax Supp) 10 mg DAILY PRN RECTAL 02/13/17 10:15 (Lactulose Liq) 30 ml DAILY PRN PO 02/13/17 10:15 (Nancy-Colace) 1 tab BID PO 02/13/17 10:15 02/13/17 12:38 Family History Reports mother, father and brother all with diabetes mellitus type 2 Social History Tobacco use positive for cigars daily Positive EtOH approximately 4 beers daily History of cocaine and heroin use Physical Exam Vital Signs Vital Signs Date Time Temp Pulse Resp B/P Pulse Ox O2 Delivery O2 Flow Rate FiO2 02/13/17 12:00 96.8 69 20 151/75 99 02/13/17 09:21 95 21 02/13/17 08:00 97.8 68 20 158/74 99 02/13/17 04:00 97.4 56 14 140/65 99 02/13/17 00:04 97.9 74 18 154/77 99 02/12/17 20:04 97.5 78 17 157/91 97 02/12/17 20:00 72 02/12/17 19:39 58 02/12/17 18:45 97.8 60 12 162/79 99 Room Air 02/12/17 18:30 65 13 189/86 99 Room Air 02/12/17 18:19 97.7 83 15 164/90 100 Simple Mask 6 Physical Exam GENERAL: 61 year old male ambulating in room in no acute distress. SKIN: Warm and dry. HEAD: Atraumatic. Normocephalic. EYES: Pupils equal and round. No scleral icterus. No injection or drainage. ENT: No nasal bleeding or discharge. Mucous membranes pink and moist. NECK: Trachea midline. CARDIOVASCULAR: Regular rate and rhythm. RESPIRATORY: No accessory muscle use. Clear to auscultation. Breath sounds equal bilaterally. GASTROINTESTINAL: Abdomen soft, non-tender, nondistended. Flat abdomen. RIGHT diaphragmatic scar-healed. MUSCULOSKELETAL: Extremities without clubbing, cyanosis, or edema. No obvious deformities. NEUROLOGICAL: Awake and alert. No obvious cranial nerve deficits. Motor grossly within normal limits. Five out of 5 muscle strength in the arms and legs. Normal speech. PSYCHIATRIC: Appropriate mood and affect; insight and judgment normal. Laboratory Laboratory Tests Test 02/13/17 11:25 White Blood Count 5.0 Red Blood Count 4.50 Hemoglobin 12.0 Hematocrit 37.3 Mean Corpuscular Volume 82.9 Mean Corpuscular Hemoglobin 26.6 Mean Corpuscular Hemoglobin 32.1 Concent Red Cell Distribution Width 13.3 Platelet Count 225 Mean Platelet Volume 7.8 Sodium Level 138 Potassium Level 4.2 Chloride Level 102 Carbon Dioxide Level 29.7 Anion Gap 6 Blood Urea Nitrogen 5 Creatinine 0.96 Estimat Glomerular Filtration 97 Rate Random Glucose 254 Calcium Level 8.5 Total Bilirubin 0.5 Aspartate Amino Transf 29 (AST/SGOT) Alanine Aminotransferase 30 (ALT/SGPT) Alkaline Phosphatase 164 Total Protein 6.7 Albumin 2.7 Lipase 89 Date/Time Procedure Status Source Growth 02/10/17 21:50 Influenza Types A,B Antigen (ELAN) - Final Complete Nasal Washing NEGATIVE FOR FLU A AND B ANTIGEN.... Imaging Last 48 hours Impressions GI Procedure 02/12/17 0000 Signed Impressions: Service Date/Time: January 17:51 - CONCLUSION: ERCP as above. Vaibhav Shine MD Assessment and Plan Assessment and Plan 61-year-old male with multiple medical problems; choledocholithiasis -We'll plan for laparoscopic cholecystectomy; possible open procedure; possible intraoperative cholangiogram this evening if OR available -Procedure explained in detail including risks -NPO -Obtain consents -Hold anticoagulation -Thank you for this consult ; we will follow along with this patient Discussed Condition With Dr. Martino MrPablo Noblesd Attending Statement As above pt with cbd stone s/p ercp yesterday Pt is scheduled for lap jose today possible IOC discussed with patient and staff in detail risks benefits alternatives Attestation The exam, history, and the medical decision-making described in the above note were completed with the assistance of the mid-level provider. I reviewed and agree with the findings presented. I attest that I had a [id number] encounter with the patient on the same day, and personally performed and documented my assessment and findings in the medical record. Apurva Owen Feb 13, 2017 16:22 Evan Martino MD Feb 13, 2017 20:53
[2017-02-13] MEDS ORDERED: fentaNYL CITRATE 250 MCG/5 ML AMP ONE (17:08)
[2017-02-13] MEDS ORDERED: KETAMINE HCL 500 MG/5 ML VIAL ONE (17:09)
[2017-02-13] MEDS ORDERED: HYDROmorphone HCL PF 2 MG/ML VIAL ONE (17:23)
--- NOTE | 2017-02-13 17:35 | HHI.PR ---
Immediate Post Op Note Procedure Date: Feb 13, 2017 Pre Op Diagnosis: cholelithiasis with choledocholithiasis Post Op Diagnosis: same Surgeon: Evan Martino MD Separator Operator(s): see or sheet Procedure: lap jose Findings: distended gallbladder with stones Complications: none Specimen(s) removed: gallbladder Estimated blood loss: 5cc Anesthesia: General Drains: None Patient to: PACU Patient Condition: Good Evan Martino MD Feb 13, 2017 17:35
[2017-02-13] MEDS ORDERED: ceFAZolin INJ 1,000 MG VIAL IV ONE (17:45)
[2017-02-13] MEDS ORDERED: BUPIVACAINE/EPINEPHRINE 0.5% PF 30 ML VIAL INFIL ONE (18:04)
[2017-02-13] MEDS ORDERED: oxyCODONE/ACETAMINOPHEN 5 MG/325 MG TAB PO PRN (18:45)
[2017-02-13] MEDS: TAMSULOSIN HCL 0.4 MG CAP PO SCH (20:10)
[2017-02-13] MEDS ORDERED: DO NOT ADM ANY ANTICOAGULANT DRUGS PRN (20:30)
[2017-02-14] VITALS (7 sets, daily range): BP systolic 129–171; BP diastolic 67–81; PULSE 72–120; RESP 18–24; TEMP 98–99.9; O2SAT 97–99
[2017-02-14] MEDS: HYDROmorphone HCL PF 1 MG/ML VIAL IV PUSH PRN ×5 (01:19→21:17)
[2017-02-14] MEDS: INSULIN ASPART SUPPLEMENTAL SCALE SQ SCH ×4 (05:14→21:26)
[2017-02-14] MEDS: PANTOPRAZOLE SOD 40 MG DELAYED RELEASE TAB PO SCH (08:08)
[2017-02-14] MEDS: amLODIPine BESYLATE 5 MG TAB PO SCH (08:08)
[2017-02-14] MEDS: DOCUSATE SODIUM 50 MG/SENNA 8.6 MG TAB PO SCH ×2 (08:09→21:16)
[2017-02-14] MEDS: GABAPENTIN 400 MG CAP PO SCH ×4 (08:09→21:16)
[2017-02-14] MEDS: METHADONE HCL 10 MG TAB PO SCH (08:09)
[2017-02-14] MEDS: LOSARTAN 25 MG TAB PO SCH (08:09)
[2017-02-14] MEDS: PRAVASTATIN SOD 40 MG TAB PO SCH (08:09)
[2017-02-14] MEDS: SODIUM CHLORIDE 0.9% FLUSH 10 ML FLUSH IV FLUSH SCH ×2 (08:12→21:00)
[2017-02-14] MEDS: SODIUM CHLOR 0.9% 1000 ML INJ 1,000 ML IV SCH ×2 (08:12→12:17)
[2017-02-14] MEDS: KETOROLAC TROMETHAMINE 30 MG/ML (IVP) VIAL IV PUSH SCH ×3 (09:23→21:16)
--- NOTE | 2017-02-14 09:24 | HHI.PR ---
Subjective Remarks Follow up abdominal pain. Patient had lap jose yesterday. He reports increased abdominal pain this morning. Denies chest pain, dyspnea. Does have left shoulder pain as well. Objective Vitals Vital Signs Date Time Temp Pulse Resp B/P Pulse Ox O2 Delivery O2 Flow Rate FiO2 02/14/17 04:00 99.9 90 18 139/79 99 02/14/17 00:00 99.9 120 18 135/74 98 02/13/17 20:50 80 02/13/17 20:00 98.2 78 17 173/84 100 02/13/17 19:15 98.6 103 16 174/95 99 Nasal Cannula 2 02/13/17 19:00 88 16 175/84 97 Nasal Cannula 2 02/13/17 18:50 97.6 97 21 188/90 100 Nasal Cannula 2 02/13/17 16:13 96.6 63 20 161/78 96 02/13/17 12:00 96.8 69 20 151/75 99 I/O 02/13/17 02/13/17 02/13/17 02/14/17 02/14/17 02/14/17 07:00 15:00 23:00 07:00 15:00 23:00 Intake Total 720 ml 1380 ml 240 ml Output Total 750 ml Balance 720 ml 630 ml 240 ml Intake Oral 720 ml 480 ml 240 ml Other 900 ml Output Urine Total 750 ml # Voids 5 4 Result Diagram: 02/13/17 1125 02/13/17 1125 Imaging Last Impressions GI Procedure 02/12/17 0000 Signed Impressions: Service Date/Time: January 17:51 - CONCLUSION: ERCP as above. Vaibhav Shine MD Abdomen/Pelvis CT 02/10/17 2140 Signed Impressions: Service Date/Time: Friday, February 10, 2017 22:07 - CONCLUSION: 7 mm stone at the distal common bile duct. There is dilatation of the common bile duct. Calcified gallstones are seen. Danny Roman MD Objective Remarks General: No acute distress. Heart: Regular rate and rhythm. No murmur. Lungs: Clear to auscultation bilaterally. No wheezes, rales, or rhonchi. Breathing is nonlabored. Abdomen: Soft, diffusely tender, moderately distended. Surgical wounds bandaged with Steri strips. Extremities: No lower extremity edema. Psych: Alert and oriented. Procedures 02/12/17 ERCP 02/13/17 laparoscopic cholecystectomy Urinary Catheter: No Vascular Central Line Catheter: No A/P Problem List: (1) Choledocholithiasis ICD Code: K80.50 Status: Acute (2) Abdominal pain ICD Code: R10.9 Status: Acute (3) Diabetes mellitus with neuropathy ICD Code: E11.40 Status: Chronic (4) Methadone dependence ICD Code: F11.20 Status: Chronic (5) Chest pain ICD Code: R07.9 Status: Chronic Assessment and Plan 1. Choledocholithiasis: Appreciate GI recommendations. Status post ERCP. S/P laparoscopic cholecystectomy, POD #1. Appreciate general surgery recommendations. Continue pain medication. 2. Diabetes mellitus with neuropathy: Monitor Accu-Cheks and cover with sliding scale insulin. 3. Chest pain: This is chronic, intermittent. Unlikely to be cardiac. Cardiac enzymes are negative. 4. Chronic methadone dependence: Methadone dose confirmed by nursing with methadone clinic. 5. GI prophylaxis: PPI. 6. DVT prophylaxis: SCDs. Discharge Planning Anticipate discharge home soon, when pain is improved and patient is cleared by general surgery, GI. Problem Qualifiers (1) Diabetes mellitus with neuropathy: Michael Willoughby MD Feb 14, 2017 09:24
[2017-02-14] MEDS ORDERED: ACETAMINOPHEN/HYDROcodone 325 MG/7.5 MG TAB PO PRN (11:15)
--- NOTE | 2017-02-14 11:15 | HHI.PR ---
Subjective Subjective Notes dilaudid has helped with pain. Hungry, wants to eat. hydrocodone has been good for him in the past. Objective Vitals/I&O Vital Signs Date Time Temp Pulse Resp B/P Pulse Ox O2 Delivery O2 Flow Rate FiO2 02/14/17 10:15 97 21 02/14/17 08:00 98.2 104 24 171/81 02/13/17 19:15 Nasal Cannula 2 Labs Laboratory Tests Test 02/13/17 02/13/17 11:25 17:10 White Blood Count 5.0 Red Blood Count 4.50 Hemoglobin 12.0 Hematocrit 37.3 Mean Corpuscular Volume 82.9 Mean Corpuscular Hemoglobin 26.6 Mean Corpuscular Hemoglobin 32.1 Concent Red Cell Distribution Width 13.3 Platelet Count 225 Mean Platelet Volume 7.8 Sodium Level 138 Potassium Level 4.2 Chloride Level 102 Carbon Dioxide Level 29.7 Anion Gap 6 Blood Urea Nitrogen 5 Creatinine 0.96 Estimat Glomerular Filtration 97 Rate Random Glucose 254 Calcium Level 8.5 Total Bilirubin 0.5 Aspartate Amino Transf 29 (AST/SGOT) Alanine Aminotransferase 30 (ALT/SGPT) Alkaline Phosphatase 164 Total Protein 6.7 Albumin 2.7 Lipase 89 Blood Type O POSITIVE Antibody Screen NEGATIVE Date/Time Procedure Status Source Growth 02/10/17 21:50 Influenza Types A,B Antigen (ELAN) - Final Complete Nasal Washing NEGATIVE FOR FLU A AND B ANTIGEN.... Radiology Last 48 hours Impressions GI Procedure 02/12/17 0000 Signed Impressions: Service Date/Time: January 17:51 - CONCLUSION: ERCP as above. Vaibhav Shine MD Abdomen: Non-distended, Other (incision sites all clean and dry, no erythema or drainage.), Post-op tenderness A/P Assessment and Plan POD 1 s/p lap jose. pain improved. Regular diet. lortab. Possible DC tomorrow. Jesus Hill MD Feb 14, 2017 11:15
--- NOTE | 2017-02-14 16:12 | HHI.GIFU ---
Subjective Remarks Pt is complaining of continued abdominal pain He states that he has not had a BM since prior to admission. Pt tolerating his advanced diet this afternoon. (Cierra Wright) Objective Vitals I&O Vital Signs Date Time Temp Pulse Resp B/P Pulse Ox O2 Delivery O2 Flow Rate FiO2 02/14/17 12:00 98.0 76 20 129/71 97 02/14/17 10:15 97 21 02/14/17 08:00 98.2 104 24 171/81 97 02/14/17 08:00 89 02/14/17 04:00 99.9 90 18 139/79 99 02/14/17 00:00 99.9 120 18 135/74 98 02/13/17 20:50 80 02/13/17 20:00 98.2 78 17 173/84 100 02/13/17 19:15 98.6 103 16 174/95 99 Nasal Cannula 2 02/13/17 19:00 88 16 175/84 97 Nasal Cannula 2 02/13/17 18:50 97.6 97 21 188/90 100 Nasal Cannula 2 02/13/17 16:13 96.6 63 20 161/78 96 I/O 02/13/17 02/13/17 02/13/17 02/14/17 02/14/17 02/14/17 07:00 15:00 23:00 07:00 15:00 23:00 Intake Total 720 ml 1380 ml 240 ml Output Total 750 ml Balance 720 ml 630 ml 240 ml Intake Oral 720 ml 480 ml 240 ml Other 900 ml Output Urine Total 750 ml # Voids 5 4 Laboratory Laboratory Tests Test 02/13/17 17:10 Blood Type O POSITIVE Antibody Screen NEGATIVE Date/Time Procedure Status Source Growth 02/10/17 21:50 Influenza Types A,B Antigen (ELAN) - Final Complete Nasal Washing NEGATIVE FOR FLU A AND B ANTIGEN.... Imaging Last Impressions GI Procedure 02/12/17 0000 Signed Impressions: Service Date/Time: January 17:51 - CONCLUSION: ERCP as above. Vaibhav Shine MD Abdomen/Pelvis CT 02/10/17 2140 Signed Impressions: Service Date/Time: Friday, February 10, 2017 22:07 - CONCLUSION: 7 mm stone at the distal common bile duct. There is dilatation of the common bile duct. Calcified gallstones are seen. Danny Roman MD Physical Exam HEENT: Normocephalic; atraumatic; no jaundice. CHEST: CTA CARDIAC: RRR ABDOMEN: +BS, soft, nondistended, mild tenderness around incision site, incision sites are c/d/i EXTREMITIES: No clubbing, cyanosis, or edema. SKIN: Normal; no rash; no jaundice. LIBRARY CLERICAL ASSISTANT: No focal deficits; alert and oriented times three. (Cierra Wright) Assessment and Plan Plan ASSESSMENT: - Choledocholithiasis. Abdomen/Pelvis CT (02/10/17)----> 7 mm stone at the distal common bile duct. There is dilatation of the common bile duct. Calcified gallstones are seen. S/P ERCP with sphincterotomy and balloon extraction (02/13/17)----> Choledocholithiasis. Had some pain post procedure. Pt underwent Lap Lizbet on 02/13/[address] Martino. - Abdominal pain, nausea secondary to above. Improved. PPI. Rpt. LFT. - Anorexia, Wt. Loss 30 lbs in [address] as above. - Cholelithiasis. s/p Lap Lizbet on 02/13. - CLEMENTE, Improved - Hyponatremia, diabetes with elevated glucose per primary PLAN: - Diet as tolerated per GS - Simethicone 125mg Q8H - Check KUB - Cont. Nancy-Colace. - MOM PRN, Lactulose PRN, Dulcolax PRN and Senna PRN already ordered. - PPI - Monitor labs - Supportive care - Pt will need to followup with GI outpt in 2 weeks. - Patient was seen and examined by myself and Dr. Roche, this note was written on his behalf (Cierra Wright) Physician Comments Patient seen and examined Agree with above Continue with current supportive care Monitor labs Follow-up with GI post discharge We will sign off (Travis Roche MD) Cierra Wright Feb 14, 2017 16:12 Travis Roche MD Feb 14, 2017 18:57
--- NOTE | 2017-02-14 18:03 | RADRPT ---
EXAM DATE/TIME: 02/14/2017 17:32 [facility] COMPARISON: No previous studies available for comparison. INDICATIONS : Abdominal pain MEDICAL HISTORY : Hypertension. Gastroesophageal reflux disease. Diabetes mellitus type II. SURGICAL HISTORY : None. ENCOUNTER: Initial ACUITY: 3 days PAIN SCORE: 4/10 LOCATION: Bilateral abdomen FINDINGS: Supine view of the abdomen was performed. The abdominal bowel gas pattern is normal. No abnormal ma sses, calcifications, or organomegaly is seen. The osseous structures are unremarkable. Clips are se en in the right upper quadrant. CONCLUSION: No acute disease. Danny Roman MD on February 14, 2017 at 18:00 Board Certified Radiologist. This report was verified electronically.
[2017-02-14] MEDS: TAMSULOSIN HCL 0.4 MG CAP PO SCH (21:16)
[2017-02-14] MEDS: SIMETHICONE 125 MG CHEWABLE TAB PO SCH (21:16)
--- NOTE | 2017-02-14 21:30 | MP ---
cc: MICHAEL MARTINO MD DATE OF SURGERY 02/13/17 PREOPERATIVE DIAGNOSIS Choledocholithiasis and cholelithiasis. POSTOPERATIVE DIAGNOSIS Choledocholithiasis and cholelithiasis. PROCEDURE PERFORMED Laparoscopic cholecystectomy SURGEON Dr. Eddi Martino [employer] ARTISTIC DIRECT[employer] See OR sheet ANESTHESIA GETA. IV FLUIDS See anesthesia sheet ESTIMATED BLOOD LOSS 10 mL DRAINS None COMPLICATIONS None. WOUND CLASSIFICATION Clean contaminated. SPECIMENS Gallbladder, COMPLICATIONS None FINDINGS Distended gallbladder with stones. INDICATIONS The patient is a 61-year-old male who presented with acute onset of abdominal pain. The patient states pain has been going on for a month and mainly in the right upper quadrant. He has further workup including CT scan showing choledocholithiasis. ERCP done with stone extraction. Therefore, the patient planned for laparoscopic cholecystectomy. PROCEDURE IN DETAIL The patient was taken to the operating suite, placed in supine position. He was prepped and draped in usual sterile fashion after induction of general endotracheal anesthesia. Brief time-out done stating correct patient, procedure and surgical site and all were in agreement with this. Attention was first directed to the umbilicus. Stab melanie incision made infraumbilically. This was done with an 11-blade. Prior to this, local anesthetic injected. Veress needle used to insufflate the abdomen to 15 mm pneumoperitoneum. The Veress needle changed for a 5-mm port. On cursory inspection, no evidence of injury. The patient then placed in reverse Trendelenburg and airplaned to the left. Three other ports placed, one 12 mm epigastric followed by two 5 mm right subcostals in the midclavicular and anterior axillary lines. Gallbladder fundus was grasped. There was noted to be significant omental adhesions to the gallbladder and these were taken down with electro Bovie cautery. The gallbladder was then retracted. Gallbladder was severely significantly distended. Therefore, endo needle in the used to remove 160 mL of bile from the gallbladder. Cystic duct and cystic artery was dissected out in the usual manner, only strictures going to the gallbladder. Two clips placed proximal to the cystic artery. one distal cystic artery clipped. Next three clips placed proximal to the cystic duct and one clip distal. Gallbladder was then removed from the gallbladder fossa with a hook electro Bovie cautery. Placed indicates bag and removed from the abdomen. Hemostasis was obtained. A small clip was placed in the gallbladder fossa to control small bleeder. Suction irrigation done until the effluent was clear. Hemostasis obtained in the gallbladder fossa. Pneumoperitoneum then desufflated, ports removed. 0 Vicryl [id number] used to approximate the fascia, 4-0 Monocryl used for subcuticular sutures. Sterile dressings then placed. The patient tolerated procedure well with no intraoperative complication. All lap and instrument counts were correct at the end of the procedure. The patient was extubated, taken stable to the PACU. MD LIV Paz/ /8:54 PM /9:11 PM PHILIP
[2017-02-15] VITALS: BP 135/81; PULSE 78; RESP 18; TEMP 98.5; O2SAT 97
[2017-02-15 00:06] VITALS: O2SAT 98
[2017-02-15] MEDS: SODIUM CHLOR 0.9% 1000 ML INJ 1,000 ML IV SCH (01:53)
[2017-02-15] MEDS: KETOROLAC TROMETHAMINE 30 MG/ML (IVP) VIAL IV PUSH SCH ×2 (01:54→09:33)
[2017-02-15] MEDS: HYDROmorphone HCL PF 1 MG/ML VIAL IV PUSH PRN ×3 (01:55→11:33)
[2017-02-15 04:00] VITALS: BP 143/86; PULSE 73; RESP 19; TEMP 99.3; O2SAT 98
[2017-02-15] MEDS: SIMETHICONE 125 MG CHEWABLE TAB PO SCH (06:37)
[2017-02-15] MEDS: INSULIN ASPART SUPPLEMENTAL SCALE SQ SCH ×2 (06:40→11:40)
[2017-02-15 08:00] VITALS: BP 139/81; PULSE 72; RESP 18; TEMP 98.2; O2SAT 98
[2017-02-15] MEDS: SODIUM CHLORIDE 0.9% FLUSH 10 ML FLUSH IV FLUSH SCH (09:00)
[2017-02-15] MEDS ORDERED: PANT40TA3 PO (09:26)
[2017-02-15] MEDS ORDERED: HYDR-3580 PO (09:26)
--- NOTE | 2017-02-15 09:27 | HHI.DCPOC ---
Discharge Care Plan Diagnosis: (1) Diabetes mellitus with neuropathy (2) Methadone dependence (3) Hypertension (4) Choledocholithiasis (5) Abdominal pain Goals to Promote Your Health * To prevent worsening of your condition and complications * To maintain your health at the optimal level Directions to Meet Your Goals Take your medications as prescribed Follow your dietary instruction Follow activity as directed Keep your appointments as scheduled Take your immunizations and boosters as scheduled If your symptoms worsen call your PCP, if no PCP go to Urgent Care Center or Emergency Room Smoking is Dangerous to Your Health. Avoid second hand smoke Call the 24-hour hour crisis hotline for domestic abuse at Michael Willoughby MD Feb 15, 2017 09:27
[2017-02-15] MEDS: PRAVASTATIN SOD 40 MG TAB PO SCH (09:33)
[2017-02-15] MEDS: PANTOPRAZOLE SOD 40 MG DELAYED RELEASE TAB PO SCH (09:33)
[2017-02-15] MEDS: LOSARTAN 25 MG TAB PO SCH (09:33)
[2017-02-15] MEDS: amLODIPine BESYLATE 5 MG TAB PO SCH (09:33)
[2017-02-15] MEDS: DOCUSATE SODIUM 50 MG/SENNA 8.6 MG TAB PO SCH (09:34)
[2017-02-15] MEDS: GABAPENTIN 400 MG CAP PO SCH (09:34)
[2017-02-15] MEDS: METHADONE HCL 10 MG TAB PO SCH (09:34)
--- NOTE | 2017-02-15 09:34 | HHI.DS ---
cc: Daniela Hilton MD Discharge Summary Admission Date Feb 11, 2017 at 00:27 Discharge Date: Feb 15, 2017 Admitting Diagnosis CHOLEDOCHOLITHIASIS, HYPERGLYCEMIA (1) Choledocholithiasis ICD Code: K80.50 (2) Abdominal pain ICD Code: R10.9 (3) Diabetes mellitus with neuropathy ICD Code: E11.40 (4) Methadone dependence ICD Code: F11.20 (5) Chest pain ICD Code: R07.9 Procedures 02/12/17 ERCP 02/13/17 laparoscopic cholecystectomy Brief History - From Admission i dont feel well has abdominal pain for past 2 months points to epigastric area report of pain in feet rigth ear and neck and numbness and pain nauseous all the time no vomtiing diarrhea once a day or so, reports of cramping, had hard stool that turns to diarrhea no fever no syncope no falls but was dizzy all the time had burning and pain on urination CBC/BMP: 02/13/17 1125 02/13/17 1125 Significant Findings Laboratory Tests Test 02/13/17 11:25 Hemoglobin 12.0 GM/DL (13.0-17.0) Hematocrit 37.3 % (39.0-51.0) Mean Corpuscular Hemoglobin 26.6 PG (27.0-34.0) Blood Urea Nitrogen 5 MG/DL (7-18) Random Glucose 254 MG/DL (74-106) Alkaline Phosphatase 164 U/L (45-117) Albumin 2.7 GM/DL (3.4-5.0) Imaging Last Impressions Abdomen X-Ray 02/14/17 0000 Signed Impressions: Service Date/Time: Tuesday, February 14, 2017 17:32 - CONCLUSION: No acute disease. Danny Roman MD GI Procedure 02/12/17 0000 Signed Impressions: Service Date/Time: January 17:51 - CONCLUSION: ERCP as above. Vaibhav Shine MD Abdomen/Pelvis CT 02/10/17 2140 Signed Impressions: Service Date/Time: Isamar, February 10, 2017 22:07 - CONCLUSION: 7 mm stone at the distal common bile duct. There is dilatation of the common bile duct. Calcified gallstones are seen. Danny Roman MD PE at Discharge General: No acute distress. Heart: Regular rate and rhythm. No murmur. Lungs: Clear to auscultation bilaterally. No wheezes, rales, or rhonchi. Breathing is nonlabored. Abdomen: Soft, mildly distended. Mild diffuse tenderness to palpation. Extremities: No lower extremity edema. Psych: Alert and oriented. Pt update on day of discharge The patient states that his pain is improving. He reports flatus. Denies nausea/ vomiting. Feels that he is ready to go home. Hospital Course The patient was admitted for further evaluation and management of abdominal pain felt to be secondary to choledocholithiasis. He was continued on pain medication, IV fluids. Gastroenterology was consulted. ERCP was done area general surgery was consulted. Patient had laparoscopic cholecystectomy done. He continued to improve clinically and was felt to be stable for discharge home. Pt Condition on Discharge: Stable Discharge Disposition: Discharge Home Discharge Time: > 30 minutes Discharge Instructions DIET: Follow Instructions for: As Tolerated, No Restrictions Activities you can perform: Regular-No Restrictions Follow up Referrals: Gastroenterology - 2 Weeks with Travis Roche MD PCP Follow-up - 1 Week Surgical - 1 Week with Evan Martino MD New Medications: Hydrocodone-Acetaminophen (Hydrocodone-Acetaminophen) 7.5-325 mg Tab 1 TAB PO Q4H PRN PAIN 1-10 #15 Ref 0 TAB Pantoprazole (Pantoprazole) 40 Mg Tab 40 MG PO DAILY Reflux #30 Ref 0 TAB Continued Medications: Amlodipine (Amlodipine) 5 Mg Tab 5 MG PO DAILY Blood Pressure Management #30 Ref [address] (Aspirin 81) 81 Mg Tabdr 81 MG PO DAILY Ref 0 TAB Gabapentin (Gabapentin) 800 Mg Tab 800 MG PO QID #120 Ref 3 TAB Insulin Glargine Inj (Lantus Inj) 1,000 Unit/10 Ml Vial 60 UNITS SQ BID Blood Sugar Management Days 30 Ref 3 VIAL Losartan (Losartan) 25 Mg Tab 25 MG PO DAILY Blood Pressure Management #30 Ref 2 TAB Lovastatin (Lovastatin) 40 Mg Tab 80 MG PO DAILY Cholesterol Management #60 Ref 3 TAB Methadone (Methadone) 40 Mg Tab 40 MG PO DAILY Ref 0 TAB Onetouch Ultra Mini W/Device (Onetouch Ultra Mini W/Device) 1 Kit Kit 1 KIT .ROUTE DIRECTED Blood Sugar Management #1 KIT Onetouch Ultra Test Strips (Equipois Ultra Test Strips) 1 Maricruz Maricruz 1 STRIP .ROUTE TID Blood Sugar Management #1 Ref 3 BOX Tamsulosin (Flomax) 0.4 Mg Cap 0.4 MG PO HS Manage Prostate Problems #30 Ref 0 CAP ([voltaren gel]) 1 APPLIC TOP TID PRN PAIN SCALE 4 TO 10 Ref 3 Discontinued Medications: Methocarbamol (Robaxin) 500 Mg Tab 500 MG PO TID Muscle Spasm #90 Ref 2 TAB Omeprazole (Omeprazole) 20 Mg Cap Michael Willoughby MD Feb 15, 2017 09:34
--- NOTE | 2017-02-15 11:47 | HHI.PR ---
Subjective Subjective Notes no issue, tolerating diet Objective Vitals/I&O Vital Signs Date Time Temp Pulse Resp B/P Pulse Ox O2 Delivery O2 Flow Rate FiO2 02/15/17 08:00 98.2 72 18 139/81 98 02/15/17 00:06 21 02/13/17 19:15 Nasal Cannula 2 Labs Date/Time Procedure Status Source Growth 02/10/17 21:50 Influenza Types A,B Antigen (ELAN) - Final Complete Nasal Washing NEGATIVE FOR FLU A AND B ANTIGEN.... Radiology Last 48 hours Impressions GI Procedure 02/12/17 0000 Signed Impressions: Service Date/Time: January 17:51 - CONCLUSION: ERCP as above. Vaibhav Shine MD Cardiovascular: Regular Lungs: Clear Abdomen: Other (soft incisional tenderness) A/P Assessment and Plan POD 2 Lap jose plan OOB PO pain control lortab- script on chart ok to d/c from surgery stand point reg diet f/u 1 week with Evan Welsh MD Feb 15, 2017 11:47
--- NOTE | 2017-02-20 23:58 | PQ ---
Physician Query Response Document PATIENT: FRANCISCO REYNOSO : 1955 ADMIT DATE: 02/11/2017 12:27 AM DISCH DATE: 02/15/2017 12:46 PM RESPONDING PROVIDER #: [email or web address] QUERY TEXT: Clarification of Clinical Diagnostic Findings Please clarify documentation or clinical relevance for the clinical / diagnostic findings or whether those are insignificant or unable to be further specified: chronic cholecystitis in addition to jose lithiasis/choledocholithiasis? If you have any additional questions/comments and/or concerns, please do not hesitate to reach out to the CDI/Coding Hotline, Ext. [phone]. The patient's Clinical Indicators include: Pathology report results documented as follows: FINAL DIAGNOSIS: GALLBLADDER WITH CHRONIC CHOLECYST ITIS AND CHOLELITHIASIS. ERCP report - INDICATION FOR PROCEDURE : Choledocholithiasis Laparoscopic cholecystectomy report - POSTOPERATIVE DIAGNOSIS : Choledocholithiasis and cholelithia sis. Query created by: Haley Baugh on 02/18/2017 9:59 PM RESPONSE TEXT: Final pathology from cholecystectomy indicates chronic cholecystitis with cholelithiasis. Electronically signed by: Michael Willoughby MD 02/20/2017 11:54 PM
== END 2017-02-15 12:46 | disposition home or self-care (01) | DRG 418 ==
LOC: NEPC 19:35 → NEDA 02-11 00:27 → HOCB 02-11 01:34
PROVIDERS: ADMIT Family Medicine; ATTEND Family Medicine
PROC: 0FC98ZZ Extirpation of Matter from Common Bile Duct, Via Natural or Artificial Opening Endoscopic (ICD-10-PCS; 2017-02-12)
PROC: 0FT44ZZ Resection of Gallbladder, Percutaneous Endoscopic Approach (ICD-10-PCS; principal; 2017-02-13 17:24)
DX: K80.64 Calculus of gallbladder and bile duct with chronic cholecystitis without obstruction (principal); F11.20 Opioid dependence, uncomplicated; N17.9 Acute kidney failure, unspecified; E11.40 Type 2 diabetes mellitus with diabetic neuropathy, unspecified; E87.1 Hypo-osmolality and hyponatremia; E11.65 Type 2 diabetes mellitus with hyperglycemia; Z79.4 Long term (current) use of insulin; I10 Essential (primary) hypertension; B19.20 Unspecified viral hepatitis C without hepatic coma; F17.290 Nicotine dependence, other tobacco product, uncomplicated; R63.4 Abnormal weight loss; R63.0 Anorexia; K44.9 Diaphragmatic hernia without obstruction or gangrene; Z79.82 Long term (current) use of aspirin
CPT/HCPCS: 74000; 74176; 74330; 80053; 81001; 82550; 82552; 82948; 83036; 83690; 84484; 85025; 85027; 86850; 86900; 86901; 87804; 88304; 93005; 96361; 96374; 96375; C1769; J0690; J1170; J1815; J1885; J2405; J2710; J3010; J7030; J7042; Q9967

== ENCOUNTER 2017-04-06 12:09 | Emergency (ER) | payer MEDICAID ==
[~2017-04-06] VITALS: Ht 177.8 cm; Wt 72.0 kg
[~2017-04-06 12:09] MED LIST changes: +HYDR-3580 PO; +METH40TA PO; -OMEP20CA2; +PANT40TA3 PO; -ROBA500T PO
[2017-04-06] MEDS ORDERED: IOHEXOL 350 MG/ML 10 ML VIAL (for RAD DIAG) IVCONTRAST ONE (12:10)
[2017-04-06 12:11] VITALS: BP 170/82; PULSE 82; RESP 20; TEMP 97.7; O2SAT 98
--- NOTE | 2017-04-06 12:26 | PD ---
Physical Exam Date Seen by Provider: Apr 06, 2017 Time Seen by Provider: 12:24 Narrative 61 Y/O male with 1 week Right upper abdominal pain radiating to the left shoulder and chest. States felt feverish. No Nausea or vomiting. Labs and EKG Ordered. Vital Signs reviewed. Patient is Stable and Awaiting Bed Placement. Data Data Last Documented VS Vital Signs Date Time Temp Pulse Resp B/P (MAP) Pulse Ox O2 Delivery O2 Flow Rate FiO2 04/06/17 12:11 97.7 82 20 170/82 (111) 98 Room Air [facility] Medical Record Reviewed: Yes Supervised Visit with TATIANA: Yes Condition: Stable Richi Mendez Apr 06, 2017 12:26
[2017-04-06 13:11] LABS: AUTOMATED NEUTROPHIL # 3.7 TH/MM3 (1.8-7.7); BASOPHIL % 0.7 % (0.0-2.0); EOSINOPHIL # 0.2 TH/MM3 (0-0.4); HEMATOCRIT 43.2 % (39.0-51.0); HEMO FLAGS DIFF FINAL; LYMPH % 24.7 % (9.0-44.0); LYMPHOCYTE # 1.4 TH/MM3 (1.0-4.8); MEAN CELL VOLUME 80.5 FL (80.0-100.0); MEAN CORPUSCULAR HEMOGLOBIN 25.9 PG (27.0-34.0); MEAN CORPUSCULAR HGB CONC 32.2 % (32.0-36.0); MONO % 7.2 % (0.0-8.0); NEUT % 64.4 % (16.0-70.0); PLATELET COUNT 191 TH/MM3 (150-450); RED BLOOD COUNT 5.37 MIL/MM3 (4.50-5.90); RED CELL DISTRIBUTION WIDTH 13.9 % (11.6-17.2); WHITE BLOOD COUNT 5.8 TH/MM3 (4.0-11.0)
[2017-04-06 13:22] LABS: APTT (PATIENT) 25.3 SEC (24.3-30.1); INTERNATIONAL NORMALIZED RATIO 0.9 RATIO; PROTHROMBIN TIME - PATIENT 9.9 SEC (9.8-11.6)
[2017-04-06 13:26] LABS: ANION GAP 8 MEQ/L (5-15); AST (GOT) 19 U/L (15-37); BICARBONATE 25.6 MEQ/L (21.0-32.0); BLOOD UREA NITROGEN 14 MG/DL (7-18); CHLORIDE 96 MEQ/L (98-107); GLOMERULAR FILTRATION RATE 85 ML/MIN (>89); POTASSIUM 4.4 MEQ/L (3.5-5.1); SODIUM (NA) 130 MEQ/L (136-145)
[2017-04-06 13:27] LABS: ALT (GPT) 25 U/L (12-78)
[2017-04-06 13:31] LABS: ALKALINE PHOSPHATASE 221 U/L (45-117); TOTAL BILIRUBIN ADULT 0.4 MG/DL (0.2-1.0)
[2017-04-06 13:37] LABS: CREATINE KINASE 66 U/L (39-308)
--- NOTE | 2017-04-06 13:42 | RADRPT ---
EXAM DATE/TIME: 04/06/2017 13:34 [facility] COMPARISON: CHEST SINGLE AP, June 14, 2016, 15:21. INDICATIONS : Bilateral chest pain. MEDICAL HISTORY : Diabetes mellitus type II. Hepatitis C. SURGICAL HISTORY : None. ENCOUNTER: Initial ACUITY: 1 day PAIN SCORE: 6/10 LOCATION: Bilateral chest FINDINGS: A single view of the chest demonstrates the lungs to be symmetrically aerated without evidence of mas s, infiltrate or effusion. The cardiomediastinal contours are unremarkable. Osseous structures are intact. CONCLUSION: No acute disease. Rich Mccallum MD on April 06, 2017 at 13:40 Board Certified Radiologist. This report was verified electronically.
--- NOTE | 2017-04-06 16:28 | PD ---
HPI Chief Complaint: Pain: Acute or Chronic Time Seen by Provider: 15:47 Travel History International Travel<30 days: No Contact w/Intl Traveler<30days: No Traveled to known affect area: No History of Present Illness HPI Patient is a 61-year-old male presenting to emergency for evaluation of abdominal pain, right flank pain. Patient states it's been ongoing for 5 days, he described as aching and throbbing. His pain is 8 out of 10 and is not exacerbated by anything, it is alleviated with methadone that he takes in the mornings. He denies any nausea, vomiting, fever, chills. Patient states he has had left upper chest pain that has been ongoing for 1 year and is unchanged. He reports a history of hypertension, diabetes, hepatitis C, hiatal hernia. He reports daily alcohol and tobacco use. PFSH Past Medical History Arthritis: Yes Asthma: No Autoimmune Disease: No Blood Disorders: No Anxiety: No Depression: No Heart Rhythm Problems: No Cancer: No Cardiovascular Problems: No High Cholesterol: Yes Chemotherapy: No Chest Pain: No Congestive Heart Failure: No COPD: No Cerebrovascular Accident: No Diabetes: Yes Diminished Hearing: No Gastrointestinal Disorders: Yes (HIATAL HERNIA, GERD) GERD: Yes Genitourinary: No Hepatitis: Yes (HEP C) Hiatal Hernia: Yes Hypertension: Yes Immune Disorder: No Kidney Stones: No Musculoskeletal: Yes (ARTHRITIS IN NECK) Neurologic: Yes (NEUROPATHY) Psychiatric: No Reproductive: No Respiratory: Yes (SMOKES 1/2 PPD CIGARETTES) Migraines: No Myocardial Infarction: No Radiation Therapy: No Renal Failure: No Sickle Cell Disease: No Sleep Apnea: No Thyroid Disease: No Ulcer: No Past Surgical History Abdominal Surgery: No AICD: No Appendectomy: No Arteriovenous Shunt: No Cardiac Surgery: No Cholecystectomy: No Ear Surgery: No Endocrine Surgery: No Eye Surgery: No Genitourinary Surgery: Yes Gynecologic Surgery: No Insulin Pump: No Joint Replacement: No Oral Surgery: No Pacemaker: No Thoracic Surgery: Yes (BIOPSY OF CHEST MASS 2013, mass removed from chest) Other Surgery: Yes Social History Alcohol Use: Yes ( DAILY) Tobacco Use: Yes (CIGARS ONLY) Substance Use: Yes (cocaine 35 yrs) Allergies-Medications (Allergen,Severity, Reaction): Coded Allergies: No Known Allergies (Verified , 04/06/17) Reported Meds & Prescriptions Reported Meds & Active Scripts Active Lovastatin 40 Mg Tab 80 Mg PO DAILY Pantoprazole (Pantoprazole Sodium) 40 Mg Tab 40 Mg PO DAILY Lantus Inj (Insulin Glargine) 1,000 Unit/10 Ml Vial 60 Units SQ BID 30 Days Gabapentin 800 Mg Tab 800 Mg PO QID Losartan (Losartan Potassium) 25 Mg Tab 25 Mg PO DAILY Amlodipine (Amlodipine Besylate) 5 Mg Tab 5 Mg PO DAILY Flomax (Tamsulosin HCl) 0.4 Mg Cap 0.4 Mg PO HS Reported Methadone (Methadone HCl) 40 Mg Tab 40 Mg PO DAILY Aspirin 81 (Aspirin) 81 Mg Tabdr 81 Mg PO DAILY Review of Systems Except as stated in HPI: all other systems reviewed are Neg General / Constitutional: No: Fever, Chills HENT: No: Headaches Cardiovascular: Positive: Chest Pain or Discomfort Respiratory: No: Shortness of Breath Gastrointestinal: Positive: Abdominal Pain, No: Nausea, Vomiting, Loss of Appetite Genitourinary: Positive: Flank Pain Physical Exam Narrative GENERAL: Well-developed, well-nourished, alert male. Resting comfortably in no acute distress. SKIN: Warm and dry. HEAD: Atraumatic. Normocephalic. EYES: Pupils equal and round. No scleral icterus. No injection or drainage. ENT: No nasal bleeding or discharge. Mucous membranes pink and moist. NECK: Trachea midline. No JVD. CARDIOVASCULAR: Regular rate and rhythm. RESPIRATORY: No accessory muscle use. Clear to auscultation. Breath sounds equal bilaterally. GASTROINTESTINAL: Abdomen soft, mildly tender in LUQ, nondistended. Hepatic and splenic margins not palpable. +CVAT on right. + bowel sounds, no rebound, no guarding. MUSCULOSKELETAL: Extremities without clubbing, cyanosis, or edema. No obvious deformities. NEUROLOGICAL: Awake and alert. No obvious cranial nerve deficits. Motor grossly within normal limits. Five out of 5 muscle strength in the arms and legs. Normal speech. PSYCHIATRIC: Appropriate mood and affect; insight and judgment normal. Data Data Last Documented VS Vital Signs Date Time Temp Pulse Resp B/P (MAP) Pulse Ox O2 Delivery O2 Flow Rate FiO2 04/06/17 17:29 69 20 159/80 (106) 98 Room Air 04/06/17 12:11 97.7 Orders Orders Complete Blood Count With Diff (04/06/17 12:26) Comprehensive Metabolic Panel (04/06/17 12:26) Lipase (8/21/17 12:26) Electrocardiogram (04/06/17 12:26) Chest, Single Ap (04/06/17 12:26) Ckmb (Isoenzyme) Profile (04/06/17 12:26) Prothrombin Time / Inr (Pt) (04/06/17 12:26) Act Partial Throm Time (Ptt) (04/06/17 12:26) Troponin I (04/06/17 12:26) Urinalysis - C+S If Indicated (04/06/17 15:54) Ct Abd/Pel W Iv Contrast(Rout) (04/06/17 ) Iv Access Insert/Monitor (04/06/17 15:54) Iohexol 350 Inj (Omnipaque 350 Inj) (04/06/17 12:10) Labs Laboratory Tests Test 04/06/17 10:50 04/06/17 17:15 White Blood Count 5.8 TH/MM3 Red Blood Count 5.37 MIL/MM3 Hemoglobin 13.9 GM/DL Hematocrit 43.2 % Mean Corpuscular Volume 80.5 FL Mean Corpuscular Hemoglobin 25.9 PG Mean Corpuscular Hemoglobin Concent 32.2 % Red Cell Distribution Width 13.9 % Platelet Count 191 TH/MM3 Mean Platelet Volume 8.0 FL Neutrophils (%) (Auto) 64.4 % Lymphocytes (%) (Auto) 24.7 % Monocytes (%) (Auto) 7.2 % Eosinophils (%) (Auto) 3.0 % Basophils (%) (Auto) 0.7 % Neutrophils # (Auto) 3.7 TH/MM3 Lymphocytes # (Auto) 1.4 TH/MM3 Monocytes # (Auto) 0.4 TH/MM3 Eosinophils # (Auto) 0.2 TH/MM3 Basophils # (Auto) 0.0 TH/MM3 CBC Comment DIFF FINAL Differential Comment Prothrombin Time 9.9 SEC Prothromb Time International Ratio 0.9 RATIO Activated Partial Thromboplast Time 25.3 SEC Blood Urea Nitrogen 14 MG/DL Creatinine 1.08 MG/DL Random Glucose 388 MG/DL Total Protein 7.9 GM/DL Albumin 3.3 GM/DL Calcium Level 9.1 MG/DL Alkaline Phosphatase 221 U/L Aspartate Amino Transf (AST/SGOT) 19 U/L Alanine Aminotransferase (ALT/SGPT) 25 U/L Total Bilirubin 0.4 MG/DL Sodium Level 130 MEQ/L Potassium Level 4.4 MEQ/L Chloride Level 96 MEQ/L Carbon Dioxide Level 25.6 MEQ/L Anion Gap 8 MEQ/L Estimat Glomerular Filtration Rate 85 ML/MIN Total Creatine Kinase 66 U/L Troponin I LESS THAN 0.02 NG/ML Lipase 122 U/L Urine Color YELLOW Urine Turbidity CLEAR Urine pH 6.0 Urine Specific Roundup 1.022 Urine Protein NEG mg/dL Urine Glucose (UA) 1000 mg/dL Urine Ketones NEG mg/dL Urine Occult Blood NEG Urine Nitrite NEG Urine Bilirubin NEG Urine Urobilinogen LESS THAN 2.0 MG/DL Urine Leukocyte Esterase NEG Urine RBC LESS THAN 1 /hpf Urine WBC LESS THAN 1 /hpf Microscopic Urinalysis Comment CULT NOT INDICATED MDM Medical Decision Making Medical Screen Exam Complete: Yes Emergency Medical Condition: Yes Interpretation(s) Laboratory Tests Test 04/06/17 10:50 White Blood Count 5.8 TH/MM3 Red Blood Count 5.37 MIL/MM3 Hemoglobin 13.9 GM/DL Hematocrit 43.2 % Mean Corpuscular Volume 80.5 FL Mean Corpuscular Hemoglobin 25.9 PG Mean Corpuscular Hemoglobin Concent 32.2 % Red Cell Distribution Width 13.9 % Platelet Count 191 TH/MM3 Mean Platelet Volume 8.0 FL Neutrophils (%) (Auto) 64.4 % Lymphocytes (%) (Auto) 24.7 % Monocytes (%) (Auto) 7.2 % Eosinophils (%) (Auto) 3.0 % Basophils (%) (Auto) 0.7 % Neutrophils # (Auto) 3.7 TH/MM3 Lymphocytes # (Auto) 1.4 TH/MM3 Monocytes # (Auto) 0.4 TH/MM3 Eosinophils # (Auto) 0.2 TH/MM3 Basophils # (Auto) 0.0 TH/MM3 CBC Comment DIFF FINAL Differential Comment Prothrombin Time 9.9 SEC Prothromb Time International Ratio 0.9 RATIO Activated Partial Thromboplast Time 25.3 SEC Blood Urea Nitrogen 14 MG/DL Creatinine 1.08 MG/DL Random Glucose 388 MG/DL Total Protein 7.9 GM/DL Albumin 3.3 GM/DL Calcium Level 9.1 MG/DL Alkaline Phosphatase 221 U/L Aspartate Amino Transf (AST/SGOT) 19 U/L Alanine Aminotransferase (ALT/SGPT) 25 U/L Total Bilirubin 0.4 MG/DL Sodium Level 130 MEQ/L Potassium Level 4.4 MEQ/L Chloride Level 96 MEQ/L Carbon Dioxide Level 25.6 MEQ/L Anion Gap 8 MEQ/L Estimat Glomerular Filtration Rate 85 ML/MIN Total Creatine Kinase 66 U/L Troponin I LESS THAN 0.02 NG/ML Lipase 122 U/L Vital Signs Date Time Temp Pulse Resp B/P (MAP) Pulse Ox O2 Delivery O2 Flow Rate FiO2 04/06/17 12:11 97.7 82 20 170/82 (111) 98 Room Air Differential Diagnosis ACS vs kidney stone vs biliary obstruction vs gastritis vs other Narrative Course Patient is a 61-year-old male that presented to emergency department for evaluation of right upper quadrant abdominal pain and right flank pain for the last 4-5 days. He also reported one year of left upper chest wall pain. Patient's vital signs are stable, patient appears well. He has had no nausea or vomiting. Labs and imaging were ordered and pending. CBC reviewed and is unremarkable CMP with sodium of 1:30, glucose 388, cardiac enzymes are negative 1 set, lipase 122 Coags reviewed and are unremarkable Urinalysis with elevated glucose and no indication of urinary tract infection. Chest x-ray with no acute disease CT the abdomen and pelvis read by radiologist shows no acute disease. Patient reassured of negative findings. He was encouraged to follow-up with his primary doctor, he was advised that pain may be more musculoskeletal in nature. He was encouraged return to emergency department immediately for any new or worsening symptoms, he was advised to avoid excessive alcohol intake area patient verbalized understanding of these instructions. He was also advised to monitor his blood glucose, and continue to use insulin as prescribed. He was advised to follow-up with his primary doctor. Patient verbalized understanding of these instructions. Patient is stable for discharge. Diagnosis Primary Impression: RUQ abdominal pain Additional Impression: Hyperglycemia due to type 2 diabetes mellitus Qualified Codes: E11.65 - Type 2 diabetes mellitus with hyperglycemia Referrals: Primary Care Physician 2 days Patient Instructions: Abdominal Pain (ED), General Instructions Additional Instructions: Follow-up with your primary doctor Return to emergency department for any new or worsening symptoms Monitor blood glucose, continue home insulin dose as prescribed, follow up with her primary doctor Med/Other Pt SpecificInfo: No Change to Meds Disposition: 01 DISCHARGE HOME Condition: Stable Jaida Bundy Apr 06, 2017 16:28
[2017-04-06 17:29] VITALS: BP 159/80; PULSE 69; RESP 20; O2SAT 98
[2017-04-06 17:55] LABS: BLOOD, URINE NEG (NEG); GLUCOSE,URINE 1000 mg/dL (NEG); KETONE, URINE NEG (NEG); NITRITE,URINE NEG (NEG); URINE COLOR YELLOW (YELLW/STRAW)
[2017-04-06 18:03] LABS: COMMENT (UR) CULT NOT INDICATED; CULTURE IF INDICATED CULT NOT INDICATED
--- NOTE | 2017-04-06 18:19 | RADRPT ---
EXAM DATE/TIME: 04/06/2017 17:39 [facility] COMPARISON: No previous studies available for comparison. INDICATIONS : Patient complains of right upper abdomen pain. IV CONTRAST: 97 cc Omnipaque 350 (iohexol) IV ORAL CONTRAST: No oral contrast ingested. RADIATION DOSE: 9.96 CTDIvol (mGy) MEDICAL HISTORY : Hypertension. Diabetes mellitus type 1. Hernia, hiatal. SURGICAL HISTORY : Cholecystectomy. ENCOUNTER: Initial ACUITY: 1 week PAIN SCALE: 8/10 LOCATION: Right upper quadrant TECHNIQUE: Volumetric scanning of the abdomen and pelvis was performed. Using automated exposure control and ad justment of the mA and/or kV according to patient size, radiation dose was kept as low as reasonably achievable to obtain optimal diagnostic quality images. DICOM format image data is available electro nically for review and comparison. FINDINGS: LOWER LUNGS: The visualized lower lungs are clear. LIVER: Homogeneous density without lesion. There is no dilation of the biliary tree. Post cholecystectomy c lips are noted. SPLEEN: Normal size without lesion. PANCREAS: Within normal limits. KIDNEYS: Normal in size and shape. There is no mass, stone or hydronephrosis. ADRENAL GLANDS: Within normal limits. VASCULAR: There is no aortic aneurysm. BOWEL/MESENTERY: The stomach, small bowel, and colon demonstrate no acute abnormality. There is no free intraperitone al air or fluid. ABDOMINAL WALL: Within normal limits. RETROPERITONEUM: There is no lymphadenopathy. BLADDER: No wall thickening or mass. REPRODUCTIVE: Within normal limits. INGUINAL: There is no lymphadenopathy or hernia. MUSCULOSKELETAL: Within normal limits for patient age. CONCLUSION: No acute disease. Lul Kamara MD on April 06, 2017 at 18:15 Board Certified Radiologist. This report was verified electronically.
--- NOTE | 2017-04-07 13:51 | EKG ---
Date Performed: 04/06/2017 Time Performed: 17:33:52 PTAGE: 61 years EKG: Sinus rhythm NORMAL ECG PREVIOUS TRACING : 04/06/2017 17.33 Since the prior tracing, there are no longer suggestive cri teria for an inferior wall infarct. Clinical correlation advised. DOCTOR: Rylie Calabrese Interpretating Date/Time 04/09/2017 06:55:55
== END 2017-04-06 19:18 | disposition home or self-care (01) ==
LOC: NEPD 12:09
DX: R10.11 Right upper quadrant pain (principal); B19.20 Unspecified viral hepatitis C without hepatic coma; I10 Essential (primary) hypertension; R07.9 Chest pain, unspecified; F17.210 Nicotine dependence, cigarettes, uncomplicated; E11.65 Type 2 diabetes mellitus with hyperglycemia; Z79.4 Long term (current) use of insulin
CPT/HCPCS: 71010; 74177; 80053; 81001; 82550; 83690; 84484; 85025; 85610; 85730; 93005; 99285; Q9967